=== PATIENT | male | born 1935 | race Caucasian/White ===

== ENCOUNTER 2018-11-13 09:38 | Outpatient (CLI) | payer MEDICARE ==
--- NOTE | 2018-11-13 11:31 | ULT ---
FBilateral upper extremity vein mapping, with grayscale and Doppler color flow Bilateral upper extremity Doppler venous ultrasound with grayscale and color flow imaging CLINICAL HISTORY: Dialysis access, soft tissue edema Findings for the vein mapping are in millimeters: RIGHT UPPER EXTREMITY: Brachial artery 4.8 Radial artery 2.7 Ulnar artery 1.8 Cephalic size 1.9, 2.4, 3.3, 3.9, 2.7, 1.9, 1.6 Basilic size 5.0, 2.7 3.0 2.4, 1.9 1.2, 1.6 LEFT UPPER EXTREMITY: Brachial 5.7 Radial artery 2.2 Ulnar artery 2.6 Cephalic size 1.0, 0.6, 0.6 1.0, 1.7 1.4, 1.2 Basilic size 3.7 1.7, 2.4 1.0, 0.8 0.7, 0.9 Evaluation of deep vein system of each upper extremity reveals appropriate patency and flow, without evidence of DVT. There is scattered soft tissue edema. Correlate clinically. IMPRESSION: 1. Bilateral extremity vein mapping as above. 2. No evidence of DVT of the bilateral upper extremities. 3. Soft tissue edema, nonspecific. Correlate clinically. Transcribed Date/Time: 11/13/2018 12:00 PM
--- NOTE | 2018-11-13 11:32 | ULT ---
FBilateral upper extremity vein mapping, with grayscale and Doppler color flow Bilateral upper extremity Doppler venous ultrasound with grayscale and color flow imaging CLINICAL HISTORY: Dialysis access, soft tissue edema Findings for the vein mapping are in millimeters: RIGHT UPPER EXTREMITY: Brachial artery 4.8 Radial artery 2.7 Ulnar artery 1.8 Cephalic size 1.9, 2.4, 3.3, 3.9, 2.7, 1.9, 1.6 Basilic size 5.0, 2.7 3.0 2.4, 1.9 1.2, 1.6 LEFT UPPER EXTREMITY: Brachial 5.7 Radial artery 2.2 Ulnar artery 2.6 Cephalic size 1.0, 0.6, 0.6 1.0, 1.7 1.4, 1.2 Basilic size 3.7 1.7, 2.4 1.0, 0.8 0.7, 0.9 Evaluation of deep vein system of each upper extremity reveals appropriate patency and flow, without evidence of DVT. There is scattered soft tissue edema. Correlate clinically. IMPRESSION: 1. Bilateral extremity vein mapping as above. 2. No evidence of DVT of the bilateral upper extremities. 3. Soft tissue edema, nonspecific. Correlate clinically. Transcribed Date/Time: 11/13/2018 12:05 PM
== END 2018-11-13 09:39 | disposition home or self-care (01) ==
LOC: ULT 09:38
PROVIDERS: ATTEND Internal Medicine Nephrology
DX: Z01.818 Encounter for other preprocedural examination (principal); I12.0 Hypertensive chronic kidney disease with stage 5 chronic kidney disease or end stage renal disease; N18.5 Chronic kidney disease, stage 5; R60.9 Edema, unspecified; M79.89 Other specified soft tissue disorders
CPT/HCPCS: 93970; G0365

== ENCOUNTER 2018-11-27 10:03 | Day surgery (SDC) | payer MEDICARE ==
[2018-11-26 11:14] VITALS: BMI 29.8
--- NOTE | 2018-11-26 12:58 | HP ---
AGE: [age] years old. HISTORY OF PRESENT ILLNESS: Tae Sena is an 83-year-old male patient dialyzes Monday, Monday, and Monday at [facility]. He is retired employee for the [employer]. 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 He arrives in my office in a wheelchair. He is with his daughter. His irish moss bleacher is Dr. Marroquin. He dialyzes Monday, Monday, and Monday at 12:40 p.m. [facility]. The patient is left handed. Ultrasound vein mapping at [facility] reveals adequate veins in right arm. Plan is for right arm primary fistula. He has had a previous hemodialysis catheter placed in [facility] two months ago. PAST SURGICAL HISTORY: Hemodialysis catheter in [facility]. He has had an appendectomy and a partial nephrectomy. MEDICATIONS: 1. Tylenol. 2. Aspirin. 3. Synthroid 50 mcg a day. 4. . 5. Lyrica 75 mg a day. 6. Furosemide 40 mg a day. 7. Vitamin D. 8. Amlodipine 5/10 daily. SOCIAL HISTORY: Tobacco cessation, alcohol cessation 10 to 15 years ago. ALLERGIES: NONE. PAST MEDICAL HISTORY: Hypertension, type 2 diabetes mellitus, hyperlipidemia, chronic kidney disease, end-stage renal disease, gout, history of nephrolithiasis, partial left nephrectomy for noncancerous disease, and appendectomy in the past. PHYSICAL EXAMINATION: VITAL SIGNS: Weight 229 pounds, 70 inches. Blood pressure 141/65, pulse 68, and temperature 97.3 degrees. HEAD, EARS, EYES, NOSE, AND THROAT: Unremarkable. LUNGS: Clear to auscultation. CARDIAC: Regular rate and rhythm without murmur or gallop. ABDOMEN: Soft and nontender. No hernias. Obese. VASCULAR: Palpable radial pulses, hemodialysis catheter right IJ. ASSESSMENT: End-stage renal disease, on maintenance dialysis Monday, Monday, and Monday at [facility], followed by Dr. Marroquin. PLAN: Placement of a right arm fistula, regional TIVA anesthesia, outpatient IV access, blood draws through his hemodialysis catheter. Job ID: [id number]
[2018-11-27 11:40] LABS: Anion Gap 13 mmol/L (10-20); BUN (Urea Nitrogen) 30 mg/dL (8.4-25.7); Calc. Creatinine Clearance 16 mL/min (70-130); Calcium 8.5 mg/dL (7.8-10.44); Carbon Dioxide 30 mmol/L (23-31); Chloride 101 mmol/L (98-107); Estimated GFR-MDRD 12; Glucose 148 mg/dL (83-110); Sodium 140 mmol/L (136-145)
[2018-11-27] MEDS ORDERED: Fentanyl 100 MCG/2 ML VIAL ONE ×2 (11:47→14:54)
[2018-11-27 12:12] LABS: #Basophils 0.1 thou/uL (0.0-0.2); #Eosinphils 0.5 thou/uL (0.0-0.7); #Lymphocytes 2.4 thou/uL (1.20-3.40); #Monocytes 1.3 thou/uL (0.11-0.59); #Neutrophils 7.7 thou/uL (1.40-6.50); %Basophils 0.6 % (0.0-1.0); %Eosinophils 4.6 % (0.0-10.0); %Lymphocytes 19.8 % (21.0-51.0); %Monocytes 10.5 % (0.0-10.0); %Neutrophils 64.4 % (42.0-75.0); Hemoglobin 13.5 g/dL (14.0-18.0); Large Platelets SLIGHT; MDiff Complete? YES; Mean Corpuscular HGB CONC 33.1 g/dL (32.0-36.0); Mean Corpuscular Hemoglobin 33.8 pg (27.0-31.0); Mean Platelet Volume 11.5 fL (7.4-10.4); Platelet Count 116 thou/uL (130-400); Platelet Morphology Comment Appears Decreased; Polychromasia SLIGHT = 2-3 cells (100X) (0-2/hpf); White Blood Cell (WBC) Count 11.9 thou/uL (4.8-10.8)
[2018-11-27] MEDS ORDERED: Bupivacaine HCl 0.5%/Epinephrine 1:200,000/PF 30 ml Vial ONE ×2 (13:31→14:52)
[2018-11-27] MEDS ORDERED: PHENYLEPHRINE-NS 100 MCG/ML 10 ML SYRINGE ONE (13:42)
[2018-11-27] MEDS ORDERED: Lidocaine 1% PF 5 ML VIAL ONE (13:42)
[2018-11-27] MEDS ORDERED: PROPOFOL 200 MG/20 ML VIAL ONE (13:42)
[2018-11-27] MEDS ORDERED: Heparin 10,000 UNITS/ 10 ML VIAL ONE ×2 (13:42→17:37)
[2018-11-27] MEDS ORDERED: Midazolam HCl 2 mg/2 ml Vial ONE (14:54)
[2018-11-27] MEDS ORDERED: Heparin 5,000 UNITS/ML VIAL ONE (14:56)
[2018-11-27] MEDS ORDERED: Iothalamate Meglumine 60% 50 ML VIAL FS ONE (14:56)
[2018-11-27] MEDS ORDERED: Lidocaine 2% PF 5 ML VIAL ONE (14:56)
[2018-11-27] MEDS ORDERED: Protamine Sulfate 50 MG/5 ML VIAL ONE (14:56)
--- NOTE | 2018-11-27 21:46 | OP ---
DATE OF PROCEDURE: 11/27/2018 PREOPERATIVE DIAGNOSIS: End-stage renal disease. POSTOPERATIVE DIAGNOSIS: End-stage renal disease. PROCEDURE PERFORMED: Right arm Taylor fistula, cephalic vein calibrated to a 3.5-mm coronary dilator. Good Doppler signal, cephalic vein outflow, forearm. ANESTHESIA: Regional, TIVA, LMA. DESCRIPTION OF PROCEDURE: The patient was taken to the operating room where under intravenous sedation and regional anesthesia due to the long prolonged period of time after the block and delay in surgery, LMA was used. The right upper extremity was prepared with ChloraPrep and draped in routine fashion. Incision was made between cephalic vein and radial artery longitudinally at the wrist, carried down to the skin and subcutaneous tissue. Radial artery and cephalic vein were dissected free. The patient was given 6000 units of heparin intravenously. Radial artery was of good quality. It was clamped proximally and distally. A longitudinal arteriotomy was made sharply, elongated with Asher scissors. After the cephalic vein was ligated on the hand side, it was spatulated and interrogated with coronary dilators passing coronary dilators from a 2.5 to a 3.5-mm coronary dilator throughout the length in the cephalic vein, forearm. It was flushed with heparinized saline solution. It was spatulated and end vein to side radial artery anastomosis was made with continuous suture of 6-0 Prolene for a 2.5-cm anastomosis. Good Doppler signal noted. Branches were divided between 4-0 silk ties and clips in the outflow. Good Doppler signal noted. The patient tolerated the procedure well. Subcutaneous tissue was approximated with 3-0 Monocryl, skin with subdermal 4-0 Monocryl and the patient was given 25 mg protamine by Anesthesia intravenously. Job ID: [id number]
== END 2018-11-27 18:05 | disposition home or self-care (01) ==
LOC: SDC 10:03
PROVIDERS: ATTEND Specialist
PROC: 031B0ZF Bypass Right Radial Artery to Lower Arm Vein, Open Approach (ICD-10-PCS; principal; 2018-11-27)
DX: I12.0 Hypertensive chronic kidney disease with stage 5 chronic kidney disease or end stage renal disease (principal); E11.22 Type 2 diabetes mellitus with diabetic chronic kidney disease; N18.6 End stage renal disease; M10.9 Gout, unspecified; E78.5 Hyperlipidemia, unspecified; Z99.2 Dependence on renal dialysis; Z79.82 Long term (current) use of aspirin; Z79.899 Other long term (current) drug therapy; Z90.5 Acquired absence of kidney
CPT/HCPCS: 80048; 85025; 93005; 93010; J0670; J0690; J1644; J2001; J2250; J2704; J2720; J3010; Q9961

== ENCOUNTER 2019-01-24 09:43 | Outpatient (CLI) | payer OTHER ==
--- NOTE | 2019-01-24 11:28 | ULT ---
BILATERAL RENAL ULTRASOUND: Date: 01/24/19 HISTORY: Chronic kidney disease. FINDINGS: Right kidney measures 13.8 cm length. Left kidney measures 10.3 cm. There are multiple bilateral renal cystic lesions. The largest in the inferior pole of the left kidne y measures 4-5 cm. The largest in the inferior right kidney measures 3-4 cm. There is increased corti edita echogenicity with cortical thinning consistent with history of chronic kidney disease. No definit e hydronephrosis. Bladder is mildly distended. Pre-void bladder volume recorded at 137 mL. IMPRESSION: Cortical thinning and increased cortical echogenicity bilaterally consistent with chronic kidney dise ase. Bilateral renal cystic lesions. POS: ATIF
== END 2019-01-24 09:44 | disposition home or self-care (01) ==
LOC: ULT 09:43
PROVIDERS: ATTEND Internal Medicine Hematology & Oncology
DX: N18.4 Chronic kidney disease, stage 4 (severe) (principal); N28.1 Cyst of kidney, acquired; N28.89 Other specified disorders of kidney and ureter
CPT/HCPCS: 76770

== ENCOUNTER 2019-02-15 07:08 | Inpatient (IN) | payer MEDICARE ==
[2019-02-15] MEDS ORDERED: Furosemide 40 MG/4 ML VIAL ONE (07:48)
--- NOTE | 2019-02-15 08:01 | RAD ---
EXAM: Chest one view: HISTORY: Dyspnea COMPARISON: None FINDINGS: Right-sided venous access catheter. Left-sided pleural thickening and pleural calcification. Right upper lobe bullous changes. Increased linear interstitial markings in the bases bilaterally, possibilities include that of chroni c change versus subsegmental atelectasis versus mild bibasilar pneumonitis. Heart size: Within normal limits. Lungs: Clear of acute process. No significant edema or pleural effusion or pneumothorax. IMPRESSION: Bibasilar linear and interstitial increased markings, nonspecific. Bullous emphysema changes in the right upper lobe. Left-sided pleural calcification. Atherosclerosis of the aorta.
[2019-02-15] MEDS ORDERED: methylPREDNISolone Sod Succ/PF 125 MG/2 ML VIAL ONE (08:15)
[2019-02-15 08:20] LABS: ALT (SGPT) 29 U/L (8-55); AST (SGOT) 35 U/L (5-34); Albumin 3.6 g/dL (3.4-4.8); Alkaline Phosphatase 72 U/L (40-150); Anion Gap 25 mmol/L (10-20); BUN (Urea Nitrogen) 71 mg/dL (8.4-25.7); Bilirubin, Total 0.5 mg/dL (0.2-1.2); Calc. Creatinine Clearance 0 mL/min (70-130); Calcium 8.8 mg/dL (7.8-10.44); Carbon Dioxide 21 mmol/L (23-31); Chloride 100 mmol/L (98-107); Estimated GFR-MDRD 6; Globulin 3.1 g/dL (2.4-3.5); Glucose 243 mg/dL (83-110); Phosphorus 5.8 mg/dL (2.3-4.7); Potassium 4.9 mmol/L (3.5-5.1); Protein, Total 6.7 g/dL (5.8-8.1); Sodium 141 mmol/L (136-145)
[2019-02-15 08:22] LABS: Band 17 % (5-11); Hemoglobin 14.1 g/dL (14.0-18.0); Lymphocytes 21 % (21-51); MDiff Complete? YES; Macrocytosis SLIGHT = 6-15 cells (100X) (0-5/hpf); Mean Corpuscular HGB CONC 32.7 g/dL (32.0-36.0); Mean Corpuscular Hemoglobin 34.3 pg (27.0-31.0); Mean Platelet Volume 10.4 fL (7.4-10.4); Monocytes 14 % (0-10); Neutrophil 48 % (42-75); Platelet Count 151 thou/uL (130-400); RBC Distribution Width 15.1 % (11.5-14.5); White Blood Cell (WBC) Count 13.6 thou/uL (4.8-10.8)
[2019-02-15] MEDS ORDERED: cefTRIAXone\\ROCEPHIN 2 GM VIAL ONE (08:36)
[2019-02-15] MEDS ORDERED: Azithromycin 500 MG VIAL ONE (08:36)
[2019-02-15 08:41] LABS: CKMB 2.7 ng/mL (0-6.6)
[2019-02-15 10:02] LABS: HBSAB Concentration 1.76 mIU/mL; HBSAg Index 0.26 S/CO (0-0.99); Hep B Surf AB Non-Reactive (NonReactive); Hep B Surf Ag Non-Reactive S/CO (NonReactive)
[2019-02-15 11:22] LABS: Troponin I 0.108 ng/mL (< 0.028)
[2019-02-15] MEDS ORDERED: cefTRIAXone\\ROCEPHIN 500 MG in Sodium Chloride 0.9% 0 ML IVPB SCH (12:01)
[2019-02-15] MEDS ORDERED: Dextrose 50% Abboject 50 ML SYRINGE SLOW IVP PRN (12:01)
[2019-02-15] MEDS ORDERED: Dextrose 5% in Water 1,000 ML IV PRN (12:01)
[2019-02-15] MEDS ORDERED: Acetaminophen 325 MG TAB PO PRN (12:01)
[2019-02-15] MEDS ORDERED: hydrALAZINE 20 MG/ML VIAL SLOW IVP PRN (12:01)
[2019-02-15] MEDS ORDERED: HumaLOG 300 UNITS/3 ML VIAL SC PRN (12:01)
--- NOTE | 2019-02-15 12:04 | HP ---
PRIMARY CARE PHYSICIAN: Dr. Jolynn Pierce. He also does get some of his primary care [place]. CHIEF COMPLAINT: Shortness of breath. HISTORY OF PRESENT ILLNESS: Mr. Sena is a very pleasant 83-year-old gentleman, who has a history of hypertension, diabetes mellitus, as well as end-stage renal disease, on hemodialysis. He says that Monday night he started having a problem with cough, Monday, he went to dialysis and after dialysis, he was extremely tired and slept most of the day. Following that on , he started having a cough again. He says it was productive of a brownish looking phlegm. There is no blood. He denies having any fever or chills. No nausea, no vomiting, but he says he has not had much of an appetite. He also noted some diarrhea, just one episode of a very large loose stool. No blood there, but that has since resolved. He came to the ER for evaluation and had a chest x-ray, which showed some bibasilar infiltrates, which was a little bit more dense on the left and also an elevated white blood cell count and he is being admitted for community-acquired pneumonia. REVIEW OF SYSTEMS: CONSTITUTIONAL: There has been no fevers or chills. No night sweats. No weight loss, but he does admit to poor appetite. HEENT: No headaches. No dizziness. No visual changes. No sore throat, rhinorrhea, or neck pain. No adenopathy. PULMONARY: As in the history of present illness. CARDIOVASCULAR: He denies any chest pain. No shortness of breath. No PND. No orthopnea. GASTROINTESTINAL: He has had one episode of diarrhea, but this has resolved. GENITOURINARY: No urinary frequency, no hematuria, no hesitancy. NEUROLOGIC: No focal weakness or numbness. No seizures. PSYCHIATRIC: No symptoms of anxiety or depression. SKIN AND INTEGUMENT: No skin changes. No rash. MUSCULOSKELETAL: No muscle pains, weakness, or joint pains. PAST MEDICAL HISTORY: Significant for hypertension; diabetes mellitus type 2; hyperlipidemia; end-stage renal disease, on hemodialysis; nephrolithiasis and a partial left nephrectomy. PAST SURGICAL HISTORY: He has had an appendectomy and partial left nephrectomy. ALLERGIES: NO KNOWN DRUG ALLERGIES. SOCIAL HISTORY: He is a former smoker. He said he quit about 20 years ago. Prior to that he smoked about two packs a day for at least 30 years. He says he used to drink, but he has basically stopped when he stopped smoking. He is . He has three children, two of which are living. His son, Greg Sena, is his surrogate decision maker and he would like to be a full code. FAMILY HISTORY: No history of any heritable diseases. CURRENT MEDICATIONS: Include; 1. Tylenol 500 mg twice a day. 2. Aspirin 81 mg daily. 3. Atacand 8 mg daily. 4. Caduet 5/10 mg once a day. 5. Glipizide 5 mg daily. 6. Lasix 40 mg twice a day. 7. Levothyroxine 50 mcg p.o. daily. 8. Lyrica 75 mg daily. 9. Metoprolol succinate extended release 25 mg once a day. 10. Renvela 800 mg twice a day. 11. Vitamin D3 1000 units once daily. PHYSICAL EXAMINATION: GENERAL: He is alert and oriented. He appears to be in no acute distress. He is well developed and well nourished. His son is at the bedside. VITAL SIGNS: Blood pressure was 118/72, heart rate 112, respiratory rate of 18, and temperature is 99.9. HEENT: His pupils are equal, round, and reactive to light and accommodation. Extraocular muscles are intact. Sclerae anicteric. Throat, there is no erythema. No exudates. On his right tympanic membrane, it is obscured by wax and there is a plastic looking foreign body in the external canal embedded in the wax. It is round and looks like it could possibly be a piece of a hearing aid. NECK: No adenopathy. No bruits. LUNGS: He has bilateral rales in both lower lung dickerson. No wheezing, no rhonchi, and he does have some decreased breath sounds at the left base. CARDIOVASCULAR: He has a normal S1 and S2. There is no S3 or S4. No murmurs, clicks or rubs. ABDOMEN: Obese. It is soft. It is nontender and nondistended. Positive for bowel sounds. No rebound. No guarding. EXTREMITIES: There is actually no edema. No pedal edema and his skin appears a bit dry and scaling. No calf tenderness. No joint effusions. NEUROLOGIC: His cranial nerves are intact and muscle strength is also intact. SKIN AND INTEGUMENT: He does have some mild discoloration of the lower extremities. No significant skin lesions. However, the skin is a bit dry and scaly on the lower extremities. LABORATORY DATA: Lab results, the white blood cell count is 13.6, hemoglobin is 14.4, hematocrit is 43, MCV is 105, and platelet count is 151. Sodium is 141, potassium is 4.9, chloride is 100, CO2 is 21, BUN of 71, and creatinine is 8.5, and glucose is 243. Lactic acid is 3.3. Troponin is 0.126. ASSESSMENT: This is a pleasant 83-year-old gentleman, who presents to the emergency room complaining of cough and shortness of breath. He is found to have a left lower lobe infiltrate. He has not recently been hospitalized. Therefore, this could be considered a community-acquired pneumonia. However, he does attend dialysis. Therefore, if the initial antibiotic choice does not improve his symptoms, then we will consider treating for healthcare-associated pneumonia. 1. For pneumonia, he will be admitted to the hospital and will continue Rocephin and azithromycin. Blood cultures have been obtained from the ER and we will place him on DuoNeb as needed as well as supplemental oxygen. 2. End-stage renal disease, on hemodialysis. We will consult his cost and risk analysis manager for maintenance hemodialysis and renal dose medications. 3. Diabetes mellitus. Restart his home medications as well as a sliding scale insulin. 4. Hypertension. Continue his usual home medications as well as p.r.n. medications. 5. He will be placed on DVT and GI prophylaxis. Job ID: [id number]
[2019-02-15 13:02] LABS: Lactic Acid 2.2 mmol/L (0.5-2.2)
[2019-02-15 13:31] LABS: Troponin I 0.104 ng/mL (< 0.028)
[2019-02-15] MEDS ORDERED: Prevnar 13-Val Conj/PF 0.5 ML SYRINGE IM ONE (15:00)
--- NOTE | 2019-02-15 17:59 | CON ---
DATE OF CONSULTATION: REASON FOR CONSULTATION: End-stage kidney disease, for maintenance hemodialysis. HISTORY OF PRESENT ILLNESS: This is an 83-year-old gentleman, presented to the hospital with increasing dyspnea for the last 2 to 3 days and weakness. The patient was not hypoxic, but was started on oxygen. The patient was last dialyzed on Monday without any issues. PAST MEDICAL HISTORY: Significant for end-stage kidney disease, hypertension, anemia, history of AV fistula, history of tunneled dialysis catheter, history of nephrolithiasis, partial nephrectomy, and appendectomy. SOCIAL HISTORY: No alcohol or drug use. FAMILY HISTORY: Negative for ESRD. ALLERGIES: REVIEWED. MEDICATIONS: Home medication list, reviewed. Hospital medication list, reviewed. REVIEW OF SYSTEMS: A 15-point review of systems was performed and was negative except for positives noted above. GENERAL: HEAD: NECK: No swelling or lumps. NOSE: No epistaxis or discharge. EYES: No diplopia or pain. RESPIRATORY: CARDIOVASCULAR: GASTROINTESTINAL: /NET LEAD DEVELOPER: MUSCULOSKELETAL: No joint pain. NEUROPSYCHIATIC SYSTEMS: No suicidal ideation. No ideation. SKIN: Denies any rash or ulcer. CONSTITUTIONAL: No fever or chills. PHYSICAL EXAMINATION: GENERAL: The patient is awake and alert. VITAL SIGNS: Afebrile, pulse 107, breathing 16, blood pressure 115/58. GENERAL APPEARANCE AND MENTAL STATUS: Fair. HEAD/NECK: Normocephalic. Atraumatic. EYES: EOMI. No deformity. EARS: Clear. No ulcers. NOSE: Intact. No lesions. MOUTH: Clear. No discharge. THROAT: Clear. No exudate. LUNGS: Clear. No crackles. CARDIAC: S1, S2. No rub. ABDOMEN: Benign. Bowel sounds positive. GENITALIA/RECTUM: Babb absent. BACK/EXTREMITIES: Edema 0+. NEUROLOGICAL: Alert and motor intact. SKIN: LYMPHATICS: LABORATORY DATA: Reviewed. ASSESSMENT AND PLAN: 1. Stage 6 chronic kidney disease. Plan dialysis. 2. Pulmonary edema. Plan dialysis. 3. Hypertension, stable. 4. Medication based on GFR, appropriate. Job ID: [id number]
[2019-02-15] MEDS: Heparin 5,000 UNITS/ML VIAL SC SCH (20:51)
[2019-02-16] MEDS: HumaLOG 300 UNITS/3 ML VIAL SC PRN (06:19)
[2019-02-16 07:00] LABS: Anion Gap 22 mmol/L (10-20); BUN (Urea Nitrogen) 44 mg/dL (8.4-25.7); Calc. Creatinine Clearance 15 mL/min (70-130); Calcium 9.9 mg/dL (7.8-10.44); Carbon Dioxide 26 mmol/L (23-31); Chloride 96 mmol/L (98-107); Estimated GFR-MDRD 11; Glucose 223 mg/dL (83-110); Potassium 4.5 mmol/L (3.5-5.1); Sodium 139 mmol/L (136-145)
[2019-02-16] MEDS ORDERED: Artificial Tears 18 DROP/0.9 ML EA EYE PRN (07:36)
[2019-02-16] MEDS ORDERED: Sodium Chloride 0.65% Nasal 44 ML BOT EA NARE PRN (07:36)
[2019-02-16] MEDS ORDERED: HYDROcodone/Acetaminophen 5/325 mg Tablet PO PRN (07:36)
[2019-02-16] MEDS ORDERED: Bisacodyl 10 MG SUPP PR PRN (07:36)
[2019-02-16] MEDS ORDERED: Metoclopramide HCl 10 MG/2 ML VIAL IVP PRN (07:36)
[2019-02-16] MEDS ORDERED: Loperamide HCl 2 MG CAP PO PRN (07:36)
[2019-02-16] MEDS ORDERED: Cepastat Lozenges 1 LOZ PO PRN (07:36)
[2019-02-16] MEDS ORDERED: Diabetic Tussin 200 MG/10 ML UDCUP PO PRN (07:36)
[2019-02-16] MEDS ORDERED: Loratadine 10 MG TAB PO PRN (07:36)
[2019-02-16] MEDS ORDERED: Temazepam 15 MG CAP PO PRN (07:36)
[2019-02-16 07:44] LABS: Band 15 % (5-11); Hemoglobin 14.7 g/dL (14.0-18.0); Lymphocytes 12 % (21-51); MDiff Complete? YES; Mean Corpuscular HGB CONC 31.9 g/dL (32.0-36.0); Mean Corpuscular Hemoglobin 33.9 pg (27.0-31.0); Mean Platelet Volume 10.5 fL (7.4-10.4); Metamyelocyte 1 % (0-0); Monocytes 8 % (0-10); Neutrophil 64 % (42-75); Nucleated RBC 1 % (0); Platelet Count 195 thou/uL (130-400); RBC Distribution Width 15.2 % (11.5-14.5); Red Blood Cell (RBC) Count 4.34 mill/uL (4.70-6.10); White Blood Cell (WBC) Count 15.2 thou/uL (4.8-10.8)
[2019-02-16] MEDS ORDERED: AMLODIPINE PO SCH (09:00)
[2019-02-16] MEDS ORDERED: ATORVASTATIN PO SCH (09:00)
[2019-02-16] MEDS ORDERED: CHOLECALCIFEROL PO SCH (09:00)
[2019-02-16] MEDS ORDERED: Levothyroxine Sodium 50 MCG TAB PO SCH (09:00)
[2019-02-16] MEDS ORDERED: Senokot S 8.6-50 MG TAB PO PRN (09:00)
[2019-02-16] MEDS: cefTRIAXone\\ROCEPHIN 1 GM in Sodium Chloride 0.9% 100 ML IVPB SCH (09:01)
[2019-02-16] MEDS: Amlodipine 5 MG TAB PO SCH (09:02)
[2019-02-16] MEDS: Aspirin 81 mg Enteric Coated Tablet PO SCH (09:03)
[2019-02-16] MEDS: Atorvastatin Calcium 10 MG TAB PO SCH (09:03)
[2019-02-16] MEDS: Folic Acid 1 MG TAB PO SCH (09:04)
[2019-02-16] MEDS: guaiFENesin ER 600 MG TAB PO SCH ×2 (09:04→20:21)
[2019-02-16] MEDS: Famotidine 20 MG TAB PO SCH (09:04)
[2019-02-16] MEDS: Cyanocobalamin (Vitamin B-12) 1,000 MCG TAB PO SCH (09:04)
[2019-02-16] MEDS: Heparin 5,000 UNITS/ML VIAL SC SCH ×2 (09:04→20:21)
[2019-02-16] MEDS: Levothyroxine Sodium 50 MCG TAB PO SCH (09:05)
[2019-02-16] MEDS: Pregabalin 75 MG CAP PO SCH ×2 (09:05→20:25)
--- NOTE | 2019-02-16 10:17 | PDOC.PN ---
- Subjective Encounter Start Date: 02/16/19 Encounter Start Time: 07:50 -: old records requested/rev Patient seen and examined. No new complaints. No overnight events - Objective Resuscitation Status - Order Detail: 02/15/19 10:49 Resuscitation Status Routine Resuscitation Status: FULL: Full Resuscitation MAR Reviewed: Yes Vital Signs & Weight: Vital Signs (12 hours) Temp Pulse Resp BP Pulse Ox 02/16/19 07:36 97.6 F 101 H 18 130/66 94 L 02/16/19 04:00 98.0 F 100 20 128/68 92 L 02/16/19 01:33 97.9 F 93 20 135/62 94 L Weight Weight 218 lb 3.2 oz Result Diagrams: 02/16/19 06:26 02/16/19 06:26 Additional Labs: Accuchecks 02/16/19 02/15/19 02/15/19 05:50 20:40 13:03 POC Glucose 210 H 229 H 264 H Radiology Reviewed by me: Yes EKG Reviewed by me: Yes Phys Exam - Physical Examination Constitutional: NAD HEENT: PERRLA, moist MMs, sclera anicteric Neck: no JVD, supple Respiratory: no wheezing, no rales, no rhonchi Cardiovascular: RRR, no significant murmur, no rub Gastrointestinal: soft, non-tender, no distention, positive bowel sounds Musculoskeletal: no edema, pulses present Neurological: non-focal, normal sensation, moves all 4 limbs Lymphatic: no nodes Psychiatric: normal affect, A&O x 3 Skin: no rash, normal turgor Dx/Plan (1) Community acquired bacterial pneumonia Code(s): J15.9 - UNSPECIFIED BACTERIAL PNEUMONIA Status: Acute (2) Demand ischemia Code(s): I24.8 - OTHER FORMS OF ACUTE ISCHEMIC HEART DISEASE Status: Acute (3) Lactic acidosis Code(s): E87.2 - ACIDOSIS Status: Acute (4) Diabetes type 2, controlled Code(s): E11.9 - TYPE 2 DIABETES MELLITUS WITHOUT COMPLICATIONS Status: Chronic (5) ESRD on hemodialysis Code(s): N18.6 - END STAGE RENAL DISEASE; Z99.2 - DEPENDENCE ON RENAL DIALYSIS Status: Chronic (6) Hypertension Code(s): I10 - ESSENTIAL (PRIMARY) HYPERTENSION Status: Chronic (7) Hypothyroidism Code(s): E03.9 - HYPOTHYROIDISM, UNSPECIFIED Status: Chronic (8) Macrocytosis Code(s): D75.89 - OTHER SPECIFIED DISEASES OF BLOOD AND BLOOD-FORMING ORGANS Status: Chronic (9) Obesity (BMI 30.0-34.9) Code(s): E66.9 - OBESITY, UNSPECIFIED Status: Chronic (10) Secondary hyperparathyroidism (of renal origin) Code(s): N25.81 - SECONDARY HYPERPARATHYROIDISM OF RENAL ORIGIN Status: Chronic - Plan cont current plan of care, continue antibiotics * continue rocephin and levaquin * add folic acid, vitamin B12 * follow culture result * medication reviewed as below * symptomatic treatment * HD as per nephrology. * add mucinex, duoneb Review of Systems - Review of Systems ENT: negative: Ear Pain, Ear Discharge, Nose Pain, Nose Discharge, Nose Congestion, Mouth Pain, Mouth Swelling, Throat Pain, Throat Swelling, Other Respiratory: Cough, SOB with Excertion. negative: Dry, Shortness of Breath, Hemoptysis, Pleuritic Pain, Sputum, Wheezing Cardiovascular: negative: chest pain, palpitations, orthopnea, paroxysmal nocturnal dyspnea, edema, light headedness, other Gastrointestinal: negative: Nausea, Vomiting, Abdominal Pain, Diarrhea, Constipation, Melena, Hematochezia, Other Genitourinary: negative: Dysuria, Frequency, Incontinence, Hematuria, Retention , Other Musculoskeletal: negative: Neck Pain, Shoulder Pain, Arm Pain, Back Pain, Hand Pain, Leg Pain, Foot Pain, Other Skin: negative: Rash, Lesions, Santos, Bruising, Other - Medications/Allergies Allergies/Adverse Reactions: Allergies Allergy/AdvReac Type Severity Reaction Status Date / Time No Known Allergies Allergy Verified 02/15/19 19:54 Medications: Current Medications Acetaminophen (Tylenol) 650 mg PO Q4H PRN PRN Reason: Headache/Fever/Mild Pain (1-3) Hydrocodone Bitart/Acetaminophen ([place] 5/325) 1 tab PO Q4H PRN PRN Reason: Moderate Pain (4-6) Albuterol/Ipratropium (Duoneb) 3 ml NEB Q1QY-SC [facility] Amlodipine Besylate (Norvasc) 5 mg PO DAILY [facility] Last Admin: 02/16/19 09:02 Dose: 5 mg Artificial Tears (Tears Naturale) 2 drop EA EYE PRN PRN PRN Reason: Dry Eyes Aspirin (Ecotrin) 81 mg PO DAILY [facility] Last Admin: 02/16/19 09:03 Dose: 81 mg Atorvastatin Calcium (Lipitor) 10 mg PO DAILY [facility] Last Admin: 02/16/19 09:03 Dose: 10 mg Bisacodyl (Dulcolax) 10 mg VT DAILYPRN PRN PRN Reason: Constipation Candesartan Cilexetil (Atacand) 16 mg PO QAM [facility] Cholecalciferol (Vitamin D3) 3,000 units PO DAILY [facility] Last Admin: 02/16/19 09:03 Dose: 3,000 units Cyanocobalamin (Vitamin B-12) 1,000 mcg PO DAILY [facility] Last Admin: 02/16/19 09:04 Dose: 1,000 mcg Dextrose/Water (Dextrose 50%) 25 gm SLOW IVP PRN PRN PRN Reason: Hypoglycemia Famotidine (Pepcid) 20 mg PO DAILY [facility] Last Admin: 02/16/19 09:04 Dose: 20 mg Folic Acid (Folvite) 1 mg PO DAILY [facility] Last Admin: 02/16/19 09:04 Dose: 1 mg Glucagon (Glucagon) 1 mg IM PRN PRN PRN Reason: Hypoglycemia Guaifenesin (Mucinex) 600 mg PO Q12HR [facility] Last Admin: 02/16/19 09:04 Dose: 600 mg Guaifenesin (Robitussin Sf) 200 mg PO Q4H PRN PRN Reason: Cough Heparin Sodium (Porcine) (Heparin) 5,000 units SC BID [facility] Last Admin: 02/16/19 09:04 Dose: 5,000 units Hydralazine HCl (Apresoline) 10 mg SLOW IVP Q4H PRN PRN Reason: SBP > 180 and HR < 70 Ceftriaxone Sodium 1 gm/ (Sodium Chloride) 100 mls @ 200 mls/hr IVPB Q24HR [facility] Last Admin: 02/16/19 09:01 Dose: 100 mls Dextrose/Water (D5w) 1,000 mls @ 0 mls/hr IV .Q0M PRN PRN Reason: Hypoglycemia Insulin Human Lispro (Humalog) 0 units SC .MODERATE SLIDING SC PRN PRN Reason: Moderate Correctional Scale Last Admin: 02/16/19 06:19 Dose: 4 unit Insulin Human Lispro (Humalog) 0 units SC .BEDTIME SLIDING SC PRN PRN Reason: Bedtime Correctional Scale Levothyroxine Sodium (Synthroid) 50 mcg PO QAM [facility] Last Admin: 02/16/19 09:05 Dose: 50 mcg Loperamide HCl (Imodium) 2 mg PO PRN PRN PRN Reason: Diarrhea/Loose Stools Loratadine (Claritin) 10 mg PO DAILYPRN PRN PRN Reason: Sinus Symptoms Metoclopramide HCl (Reglan) 5 mg IVP Q4H PRN PRN Reason: Nausea Metoprolol Succinate (Toprol Xl) 25 mg PO [facility] Last Admin: 02/15/19 20:51 Dose: 25 mg Pregabalin (Lyrica) 75 mg PO BID [facility] Last Admin: 02/16/19 09:05 Dose: 75 mg Senna/Docusate Sodium (Senokot S) 2 tab PO BID PRN PRN Reason: Constipation Sodium Chloride (Flush - Normal Saline) 10 ml IVF Q12HR [facility] Last Admin: 02/16/19 09:07 Dose: 10 ml Sodium Chloride (Flush - Normal Saline) 10 ml IVF PRN PRN PRN Reason: Saline Flush Sodium Chloride ([place] Nasal [place] 0.65%) 0 ml EA NARE QIDPRN PRN PRN Reason: Nasal Congestion Temazepam (Restoril) 15 mg PO HSPRN PRN PRN Reason: Insomnia Throat Lozenges (Cepastat Lozenges) 1 nelda PO Q2H PRN PRN Reason: Sore Throat
--- NOTE | 2019-02-16 12:33 | CT ---
CT THORAX NONCONTRAST: DATE: 02/16/2019 HISTORY: 83-year-old male with hypoxemia and dyspnea COMPARISON: none FINDINGS: There are infiltrates at the posterior basilar segments of the bilateral lower lobes, and a similar m ild such changes at the lingula, which could be acute or chronic, but are slightly favored to be chronic. Babb and blebs at bilateral posterior costophrenic angles, abutting the infiltrates, left g reater than right. No consolidation in the bilateral upper lobes. Centrilobular emphysematous changes in the bilateral upper lobes. No bullae at lung apices. Trachea and major bronchi are patent and clear. No cardiomegaly. Atherosclerotic calcification without aneurysm of thoracic aorta. Heavy atherosclerotic calcification of left main, LAD, and RCA. No mediastinal lymphadenopathy. No pleural effusion or pneumothorax. Calcified pleural plaque in 2 locations at left lateral pleural surface and one location in right anterior pleural surface. No destructive osseous lesion identified. Right i nternal jugular double lumen dialysis catheter with distal tip at junction between SVC and right atrium.. IMPRESSION: 1) centrilobular emphysema in upper lobes, and paraseptal emphysema at posterior lower lobe lung base s. 2) mild posterobasilar infiltrates in the bilateral lower lobes, favored to be chronic. 3) bilateral calcified pleural plaque: Evidence for prior asbestos exposure. 4) right internal jugular double lumen dialysis catheter. 5) coronary atherosclerotic disease.
--- NOTE | 2019-02-16 13:27 | PRG ---
DATE OF SERVICE: 02/16/2019 SUBJECTIVE: This 83-year-old gentleman being seen for end-stage renal disease. The patient denies any nausea, vomiting, or chest pain. OBJECTIVE: See above. The patient is awake, alert, in no acute distress. VITAL SIGNS: Pulse 93, breathing 16, blood pressure 130/66. GENERAL APPEARANCE AND MENTAL STATUS: Fair. HEAD/NECK: Normocephalic. Atraumatic. EYES: EOMI. No deformity. EARS: Clear. No ulcers. NOSE: Intact. No lesions. MOUTH: Clear. No discharge. THROAT: Clear. No exudate. LUNGS: Clear. No crackles. CARDIAC: S1, S2. No rub. ABDOMEN: Benign. Bowel sounds positive. GENITALIA/RECTUM: Babb absent. BACK/EXTREMITIES: Edema 0+. NEUROLOGICAL: Alert and motor intact. SKIN: LYMPHATICS: LABORATORY DATA: Labs are reviewed. ASSESSMENT AND PLAN: 1. Stage 6 chronic kidney disease, continue current dialysis. 2. Hypertension, stable. 3. Anemia, stable. 4. Medication based on GFR appropriate. Job ID: [id number]
--- NOTE | 2019-02-16 14:00 | CON ---
DATE OF CONSULTATION: 02/16/2019 HISTORY OF PRESENT ILLNESS: Mr. Sena is a very pleasant gentleman. I was consulted by Dr. Atkinson for an abnormal chest x-ray. After reviewing his radiograph, I recommended noncontrast chest CT. He is currently a dialysis patient. He is tentatively scheduled to have vascular access procedure done on his right upper extremity in the near future. He has end-stage renal disease, felt to be secondary I believe the hypertension. PAST MEDICAL HISTORY: Past medical history of nephrolithiasis, partial nephrectomy, and appendectomy. SOCIAL HISTORY: He is a former smoker, nondrinker, and nondrug user. FAMILY HISTORY: There is no family history of lung disease in early age. OCCUPATIONAL HISTORY: Worked in [employer] and had significant asbestos exposure when he was young man. REVIEW OF SYSTEMS: Ten point review of systems, otherwise negative. He says he is feeling fine now. MEDICATIONS: Have been reviewed. PHYSICAL EXAMINATION: GENERAL: He is a very pleasant gentleman, in no distress, conversing in complete sentences. VITAL SIGNS: He is afebrile, heart rate 93, respiratory rate is 20, oximetry is 97%, and blood pressure 143/66. HEENT: Pupils are equal. Sclerae are anicteric. Extraocular movements full. NECK: Supple. No lymphadenopathy. LUNGS: Clear. HEART: Regular rhythm. S1 and S2 are normal. Grade 1 to 2/6 systolic murmur. ABDOMEN: Soft and nontender. EXTREMITIES: Without clubbing, cyanosis, or edema. NEUROLOGIC: Nonfocal. DIAGNOSTIC DATA: Chest radiograph shows an increase in interstitial markings suggestive of pulmonary edema. There appears to be pleural plaques in the left chest. IMPRESSION: Asbestos induced pleural plaques. I have recommended noncontrast chest CT. I doubt we will find anything that is worrisome for malignancy. I suspect he will have some emphysematous changes given his heavy tobacco history in the past. The consult is appreciated at this time. This is a 50 minute consult, with greater than 50% of time spent on unit coordinating care. Job ID: [id number] MTDD
[2019-02-17 06:20] VITALS: BMI 30.3
[2019-02-17 07:10] LABS: Albumin 3.3 g/dL (3.4-4.8); Anion Gap 22 mmol/L (10-20); BUN (Urea Nitrogen) 82 mg/dL (8.4-25.7); BUN/Creatinine Ratio 12.33; Calc. Creatinine Clearance 11 mL/min (70-130); Calcium 8.7 mg/dL (7.8-10.44); Carbon Dioxide 23 mmol/L (23-31); Chloride 99 mmol/L (98-107); Estimated GFR-MDRD 8; Glucose 212 mg/dL (83-110); Phosphorus 7.3 mg/dL (2.3-4.7); Potassium 4.1 mmol/L (3.5-5.1); Sodium 140 mmol/L (136-145)
[2019-02-17 08:20] LABS: Band 3 % (5-11); Hemoglobin 13.8 g/dL (14.0-18.0); Lymphocytes 12 % (21-51); MDiff Complete? YES; Mean Corpuscular Hemoglobin 34.7 pg (27.0-31.0); Mean Platelet Volume 10.3 fL (7.4-10.4); Metamyelocyte 4 % (0-0); Monocytes 7 % (0-10); Neutrophil 74 % (42-75); Platelet Count 198 thou/uL (130-400); RBC Distribution Width 14.8 % (11.5-14.5); Red Blood Cell (RBC) Count 3.97 mill/uL (4.70-6.10); White Blood Cell (WBC) Count 19.4 thou/uL (4.8-10.8)
[2019-02-17] MEDS: guaiFENesin ER 600 MG TAB PO SCH ×2 (09:28→21:37)
[2019-02-17] MEDS: cefTRIAXone\\ROCEPHIN 1 GM in Sodium Chloride 0.9% 100 ML IVPB SCH (09:28)
[2019-02-17] MEDS: Levothyroxine Sodium 50 MCG TAB PO SCH (09:29)
[2019-02-17] MEDS: Cyanocobalamin (Vitamin B-12) 1,000 MCG TAB PO SCH (09:29)
[2019-02-17] MEDS: Atorvastatin Calcium 10 MG TAB PO SCH (09:29)
[2019-02-17] MEDS: Aspirin 81 mg Enteric Coated Tablet PO SCH (09:29)
[2019-02-17] MEDS: Famotidine 20 MG TAB PO SCH (09:29)
[2019-02-17] MEDS: Amlodipine 5 MG TAB PO SCH (09:29)
[2019-02-17] MEDS: Folic Acid 1 MG TAB PO SCH (09:29)
[2019-02-17] MEDS: Pregabalin 75 MG CAP PO SCH ×2 (09:30→21:37)
[2019-02-17] MEDS: Heparin 5,000 UNITS/ML VIAL SC SCH ×2 (09:30→21:38)
--- NOTE | 2019-02-17 09:40 | PDOC.PN ---
- Subjective Encounter Start Date: 02/17/19 Encounter Start Time: 09:00 Patient seen and examined. No new complaints. No overnight events - Objective Resuscitation Status - Order Detail: 02/15/19 10:49 Resuscitation Status Routine Resuscitation Status: FULL: Full Resuscitation MAR Reviewed: Yes Vital Signs & Weight: Vital Signs (12 hours) Temp Pulse Resp BP Pulse Ox 02/17/19 07:31 93 L 02/17/19 07:29 102 H 16 02/17/19 07:10 95 02/17/19 07:06 97.5 F L 99 18 134/60 95 02/17/19 03:50 97.8 F 87 16 124/63 93 L 02/17/19 00:54 91 14 92 L Weight Weight 217 lb 5 oz I&O: 02/16/19 02/17/19 02/18/19 06:59 06:59 06:59 Intake Total 1190 Output Total 350 Balance 840 Result Diagrams: 02/17/19 05:51 02/17/19 05:51 Additional Labs: Accuchecks 02/17/19 02/16/19 02/16/19 05:38 20:33 16:29 POC Glucose 196 H 228 H 256 H 02/16/19 12:27 POC Glucose 233 H EKG Reviewed by me: Yes Phys Exam - Physical Examination Constitutional: NAD HEENT: PERRLA, moist MMs, sclera anicteric Neck: no JVD, supple Respiratory: no wheezing, no rhonchi coarse sound Cardiovascular: RRR, no significant murmur, no rub Gastrointestinal: soft, non-tender, no distention, positive bowel sounds Musculoskeletal: no edema, pulses present Neurological: non-focal, normal sensation Lymphatic: no nodes Psychiatric: normal affect, A&O x 3 Skin: no rash, normal turgor Dx/Plan (1) Community acquired bacterial pneumonia Code(s): J15.9 - UNSPECIFIED BACTERIAL PNEUMONIA Status: Acute (2) Demand ischemia Code(s): I24.8 - OTHER FORMS OF ACUTE ISCHEMIC HEART DISEASE Status: Acute (3) Lactic acidosis Code(s): E87.2 - ACIDOSIS Status: Acute (4) Diabetes type 2, controlled Code(s): E11.9 - TYPE 2 DIABETES MELLITUS WITHOUT COMPLICATIONS Status: Chronic (5) ESRD on hemodialysis Code(s): N18.6 - END STAGE RENAL DISEASE; Z99.2 - DEPENDENCE ON RENAL DIALYSIS Status: Chronic (6) Hypertension Code(s): I10 - ESSENTIAL (PRIMARY) HYPERTENSION Status: Chronic (7) Hypothyroidism Code(s): E03.9 - HYPOTHYROIDISM, UNSPECIFIED Status: Chronic (8) Macrocytosis Code(s): D75.89 - OTHER SPECIFIED DISEASES OF BLOOD AND BLOOD-FORMING ORGANS Status: Chronic (9) Obesity (BMI 30.0-34.9) Code(s): E66.9 - OBESITY, UNSPECIFIED Status: Chronic (10) Secondary hyperparathyroidism (of renal origin) Code(s): N25.81 - SECONDARY HYPERPARATHYROIDISM OF RENAL ORIGIN Status: Chronic - Plan cont current plan of care, continue antibiotics, respiratory therapy * continue rocephin and levaquin * HD as per nephrology * repeat labs tomorrow. * add renvela for high phosphorus Review of Systems - Review of Systems ENT: negative: Ear Pain, Ear Discharge, Nose Pain, Nose Discharge, Nose Congestion, Mouth Pain, Mouth Swelling, Throat Pain, Throat Swelling, Other Respiratory: Cough, SOB with Excertion. negative: Dry, Shortness of Breath, Hemoptysis, Pleuritic Pain, Sputum, Wheezing Cardiovascular: negative: chest pain, palpitations, orthopnea, paroxysmal nocturnal dyspnea, edema, light headedness, other Gastrointestinal: negative: Nausea, Vomiting, Abdominal Pain, Diarrhea, Constipation, Melena, Hematochezia, Other Genitourinary: negative: Dysuria, Frequency, Incontinence, Hematuria, Retention , Other Musculoskeletal: negative: Neck Pain, Shoulder Pain, Arm Pain, Back Pain, Hand Pain, Leg Pain, Foot Pain, Other Skin: negative: Rash, Lesions, Santos, Bruising, Other - Medications/Allergies Allergies/Adverse Reactions: Allergies Allergy/AdvReac Type Severity Reaction Status Date / Time No Known Allergies Allergy Verified 02/15/19 19:54 Medications: Current Medications Acetaminophen (Tylenol) 650 mg PO Q4H PRN PRN Reason: Headache/Fever/Mild Pain (1-3) Hydrocodone Bitart/Acetaminophen ([place] 5/325) 1 tab PO Q4H PRN PRN Reason: Moderate Pain (4-6) Albuterol/Ipratropium (Duoneb) 3 ml NEB [id number] SANDRA Last Admin: 02/17/19 07:29 Dose: 3 ml Amlodipine Besylate (Norvasc) 5 mg PO DAILY COUNT [facility] Last Admin: 02/17/19 09:29 Dose: 5 mg Artificial Tears (Tears Naturale) 2 drop EA EYE PRN PRN PRN Reason: Dry Eyes Aspirin (Ecotrin) 81 mg PO DAILY COUNT [facility]CLUD[facility] Last Admin: 02/17/19 09:29 Dose: 81 mg Atorvastatin Calcium (Lipitor) 10 mg PO DAILY COUNT [facility] Last Admin: 02/17/19 09:29 Dose: 10 mg Bisacodyl (Dulcolax) 10 mg MT DAILYPRN PRN PRN Reason: Constipation Candesartan Cilexetil (Atacand) 16 mg PO QAM COUNT [facility] Last Admin: 02/17/19 09:29 Dose: 16 mg Cholecalciferol (Vitamin D3) 3,000 units PO DAILY COUNT [facility] Last Admin: 02/17/19 09:28 Dose: 3,000 units Cyanocobalamin (Vitamin B-12) 1,000 mcg PO DAILY COUNT [facility] Last Admin: 02/17/19 09:29 Dose: 1,000 mcg Dextrose/Water (Dextrose 50%) 25 gm SLOW IVP PRN PRN PRN Reason: Hypoglycemia Famotidine (Pepcid) 20 mg PO DAILY COUNT [facility] Last Admin: 02/17/19 09:29 Dose: 20 mg Folic Acid (Folvite) 1 mg PO DAILY COUNT [facility] Last Admin: 02/17/19 09:29 Dose: 1 mg Glucagon (Glucagon) 1 mg IM PRN PRN PRN Reason: Hypoglycemia Guaifenesin (Mucinex) 600 mg PO Q12HR COUNT [facility]CLUD[facility] Last Admin: 02/17/19 09:28 Dose: 600 mg Guaifenesin (Robitussin Sf) 200 mg PO Q4H PRN PRN Reason: Cough Heparin Sodium (Porcine) (Heparin) 5,000 units SC BID COUNT [facility] Last Admin: 02/17/19 09:30 Dose: 5,000 units Hydralazine HCl (Apresoline) 10 mg SLOW IVP Q4H PRN PRN Reason: SBP > 180 and HR < 70 Ceftriaxone Sodium 1 gm/ (Sodium Chloride) 100 mls @ 200 mls/hr IVPB Q24HR COUNT [facility] Last Admin: 02/17/19 09:28 Dose: 100 mls Dextrose/Water (D5w) 1,000 mls @ 0 mls/hr IV .Q0M PRN PRN Reason: Hypoglycemia Levofloxacin 750 mg/ Device 150 mls @ 100 mls/hr IVPB Q2DAYS COUNT [facility]CLUD[facility] Last Admin: 02/16/19 13:27 Dose: 150 mls Insulin Human Lispro (Humalog) 0 units SC .MODERATE SLIDING SC PRN PRN Reason: Moderate Correctional Scale Last Admin: 02/16/19 06:19 Dose: 4 unit Insulin Human Lispro (Humalog) 0 units SC .BEDTIME SLIDING SC PRN PRN Reason: Bedtime Correctional Scale Last Admin: 02/16/19 21:19 Dose: 2 unit Levothyroxine Sodium (Synthroid) 50 mcg PO QAM COUNT [facility] Last Admin: 02/17/19 09:29 Dose: 50 mcg Loperamide HCl (Imodium) 2 mg PO PRN PRN PRN Reason: Diarrhea/Loose Stools Loratadine (Claritin) 10 mg PO DAILYPRN PRN PRN Reason: Sinus Symptoms Metoclopramide HCl (Reglan) 5 mg IVP Q4H PRN PRN Reason: Nausea Metoprolol Succinate (Toprol Xl) 25 mg PO [facility] Last Admin: 02/16/19 20:25 Dose: 25 mg Pregabalin (Lyrica) 75 mg PO BID COUNT [facility] Last Admin: 02/17/19 09:30 Dose: 75 mg Senna/Docusate Sodium (Senokot S) 2 tab PO BID PRN PRN Reason: Constipation Sodium Chloride (Flush - Normal Saline) 10 ml IVF Q12HR COUNT [facility]CLUDES [facility] Last Admin: 02/17/19 09:31 Dose: 10 ml Sodium Chloride (Flush - Normal Saline) 10 ml IVF PRN PRN PRN Reason: Saline Flush Sodium Chloride ([place] Nasal [place] 0.65%) 0 ml EA NARE QIDPRN PRN PRN Reason: Nasal Congestion Temazepam (Restoril) 15 mg PO HSPRN PRN PRN Reason: Insomnia Throat Lozenges (Cepastat Lozenges) 1 nelda PO Q2H PRN PRN Reason: Sore Throat
[2019-02-17] MEDS: Sevelamer Carbonate 800 MG TAB PO SCH ×2 (11:22→17:01)
[2019-02-17] MEDS: HumaLOG 300 UNITS/3 ML VIAL SC PRN (11:23)
--- NOTE | 2019-02-17 12:30 | PRG ---
DATE OF SERVICE: 02/17/2019 SUBJECTIVE: An 83-year-old gentleman, being seen for end-stage renal disease. The patient denies any nausea, vomiting, or chest pain. OBJECTIVE: CONSTITUTIONAL: Awake, alert, in no acute distress. VITAL SIGNS: Afebrile, pulse 85, breathing 16, blood pressure . GENERAL APPEARANCE AND MENTAL STATUS: Fair. HEAD/NECK: Normocephalic. Atraumatic. EYES: EOMI. No deformity. EARS: Clear. No ulcers. NOSE: Intact. No lesions. MOUTH: Clear. No discharge. THROAT: Clear. No exudate. LUNGS: Clear. No crackles. CARDIAC: S1, S2. No rub. ABDOMEN: Benign. Bowel sounds positive. GENITALIA/RECTUM: Babb absent. BACK/EXTREMITIES: Edema 0+. NEUROLOGICAL: Alert and motor intact. SKIN: LYMPHATICS: LABORATORY DATA: Reviewed. ASSESSMENT AND PLAN: 1. Stage 6 chronic kidney disease, plan dialysis, lower dry weight. 2. Pulmonary edema, lower dry weight. 3. Anemia, stable. 4. Medication based on GFR, appropriate. Pulmonary consult appreciated. The patient will need close followup with Dr. Ramirez. Job ID: [id number]
--- NOTE | 2019-02-17 13:44 | PRG ---
DATE OF SERVICE: 02/17/2019 SUBJECTIVE: Mr. Sena's CT was reviewed. I discussed this with him. I see probably asbestos mediated pleural plaques. I see upper lobe bullous disease. He has some interstitial crowdings at his bases. He has coronary artery calcification. He is in no distress today and says he feels great. OBJECTIVE: VITAL SIGNS: He is afebrile. Heart rate 95, respiratory rate 18, oximetry is 95%, and blood pressure 126/60. IMPRESSION: 1. Asbestos pleural plaques. 2. Chronic obstructive pulmonary disease. 3. End-stage renal disease, on dialysis. He said he is due for dialysis tomorrow. PLAN: We will see him as needed in the future. Job ID: [id number]
[2019-02-18 06:42] LABS: Hemoglobin 13.6 g/dL (14.0-18.0); Mean Corpuscular HGB CONC 33.2 g/dL (32.0-36.0); Mean Corpuscular Hemoglobin 34.8 pg (27.0-31.0); Mean Platelet Volume 10.4 fL (7.4-10.4); Platelet Count 196 thou/uL (130-400); RBC Distribution Width 14.7 % (11.5-14.5); White Blood Cell (WBC) Count 19.3 thou/uL (4.8-10.8)
[2019-02-18 06:51] LABS: Anion Gap 24 mmol/L (10-20); BUN (Urea Nitrogen) 99 mg/dL (8.4-25.7); Calc. Creatinine Clearance 10 mL/min (70-130); Calcium 8.8 mg/dL (7.8-10.44); Carbon Dioxide 20 mmol/L (23-31); Chloride 100 mmol/L (98-107); Estimated GFR-MDRD 7; Glucose 234 mg/dL (83-110); Potassium 4.3 mmol/L (3.5-5.1); Sodium 140 mmol/L (136-145)
[2019-02-18 07:56] LABS: Band 1 % (5-11); Eosinophils 1 % (0-10); Large Platelets SLIGHT; Lymphocytes 8 % (21-51); MDiff Complete? YES; Macrocytosis SLIGHT = 6-15 cells (100X) (0-5/hpf); Metamyelocyte 4 % (0-0); Monocytes 8 % (0-10); Myelocyte 5 % (0-0); Neutrophil 72 % (42-75); Platelet Morphology Comment Appears Adequate; Polychromasia SLIGHT = 2-3 cells (100X) (0-2/hpf); Reactive Lymphocytes 1 % (0-10)
[2019-02-18] MEDS: cefTRIAXone\\ROCEPHIN 1 GM in Sodium Chloride 0.9% 100 ML IVPB SCH (09:49)
[2019-02-18] MEDS: Pregabalin 75 MG CAP PO SCH ×2 (09:50→20:19)
[2019-02-18] MEDS: Sevelamer Carbonate 800 MG TAB PO SCH ×3 (09:50→17:55)
[2019-02-18] MEDS: Cyanocobalamin (Vitamin B-12) 1,000 MCG TAB PO SCH (09:51)
[2019-02-18] MEDS: Atorvastatin Calcium 10 MG TAB PO SCH (09:51)
[2019-02-18] MEDS: guaiFENesin ER 600 MG TAB PO SCH ×2 (09:51→20:19)
[2019-02-18] MEDS: Folic Acid 1 MG TAB PO SCH (09:51)
[2019-02-18] MEDS: Amlodipine 5 MG TAB PO SCH (09:51)
[2019-02-18] MEDS: Aspirin 81 mg Enteric Coated Tablet PO SCH (09:51)
[2019-02-18] MEDS: Saccharomyces boulardii 250 MG CAP PO SCH (09:51)
[2019-02-18] MEDS: Famotidine 20 MG TAB PO SCH (09:51)
[2019-02-18] MEDS: Levothyroxine Sodium 50 MCG TAB PO SCH (10:23)
[2019-02-18] MEDS: Heparin 5,000 UNITS/ML VIAL SC SCH ×2 (10:23→20:20)
--- NOTE | 2019-02-18 11:48 | PDOC.PN ---
- Subjective Encounter Start Date: 02/18/19 Encounter Start Time: 10:10 pt today confused, his wbc count is increased, no fever, - Objective Resuscitation Status - Order Detail: 02/15/19 10:49 Resuscitation Status Routine Resuscitation Status: FULL: Full Resuscitation MAR Reviewed: Yes Vital Signs & Weight: Vital Signs (12 hours) Temp Pulse Resp BP Pulse Ox 02/18/19 09:51 101 H 02/18/19 08:02 97.4 F L 101 H 18 120/60 94 L 02/18/19 08:00 95 02/18/19 07:03 87 18 90 L 02/18/19 04:00 98.4 F 90 19 151/69 H 96 02/18/19 03:03 98.0 F 100 18 115/56 L 96 02/18/19 00:39 97 16 92 L Weight Weight 220 lb 8 oz I&O: 02/17/19 02/18/19 02/19/19 06:59 06:59 06:59 Intake Total 1190 1680 Output Total 350 0 Balance 840 1680 Result Diagrams: 02/18/19 05:59 02/18/19 05:59 Additional Labs: Accuchecks 02/18/19 02/18/19 02/17/19 10:32 06:00 20:24 POC Glucose 269 H 210 H 275 H 02/17/19 02/17/19 16:31 10:44 POC Glucose 247 H 296 H EKG Reviewed by me: Yes Phys Exam - Physical Examination Constitutional: NAD HEENT: PERRLA, moist MMs, sclera anicteric Neck: no JVD, supple Respiratory: no wheezing, no rales, no rhonchi Cardiovascular: RRR, no significant murmur, no rub Gastrointestinal: soft, non-tender, no distention, positive bowel sounds Musculoskeletal: no edema, pulses present Neurological: non-focal, normal sensation Lymphatic: no nodes Psychiatric: normal affect Skin: no rash, normal turgor Dx/Plan (1) Community acquired bacterial pneumonia Code(s): J15.9 - UNSPECIFIED BACTERIAL PNEUMONIA Status: Acute (2) Demand ischemia Code(s): I24.8 - OTHER FORMS OF ACUTE ISCHEMIC HEART DISEASE Status: Acute (3) Lactic acidosis Code(s): E87.2 - ACIDOSIS Status: Acute (4) Diabetes type 2, controlled Code(s): E11.9 - TYPE 2 DIABETES MELLITUS WITHOUT COMPLICATIONS Status: Chronic (5) ESRD on hemodialysis Code(s): N18.6 - END STAGE RENAL DISEASE; Z99.2 - DEPENDENCE ON RENAL DIALYSIS Status: Chronic (6) Hypertension Code(s): I10 - ESSENTIAL (PRIMARY) HYPERTENSION Status: Chronic (7) Hypothyroidism Code(s): E03.9 - HYPOTHYROIDISM, UNSPECIFIED Status: Chronic (8) Macrocytosis Code(s): D75.89 - OTHER SPECIFIED DISEASES OF BLOOD AND BLOOD-FORMING ORGANS Status: Chronic (9) Obesity (BMI 30.0-34.9) Code(s): E66.9 - OBESITY, UNSPECIFIED Status: Chronic (10) Secondary hyperparathyroidism (of renal origin) Code(s): N25.81 - SECONDARY HYPERPARATHYROIDISM OF RENAL ORIGIN Status: Chronic (11) Encephalopathy acute Code(s): G93.40 - ENCEPHALOPATHY, UNSPECIFIED Status: Acute Comment: due to sepsis and metabolic (12) Asbestos-induced pleural plaque Code(s): J92.0 - PLEURAL PLAQUE WITH PRESENCE OF ASBESTOS Status: Chronic (13) Emphysema of lung Code(s): J43.9 - EMPHYSEMA, UNSPECIFIED Status: Chronic Comment: centrilobular and paraseptal emphysema due to previous heavy tobacco exposure - Plan cont current plan of care, continue antibiotics * transfer to medical * mimi grier * start PT/OT and showcase trimmer for snu evaluation * continue iv levaquin * today HD * repeat labs tomorrow * medication reviewed as below * symptomatic treatment. Review of Systems - Review of Systems ENT: negative: Ear Pain, Ear Discharge, Nose Pain, Nose Discharge, Nose Congestion, Mouth Pain, Mouth Swelling, Throat Pain, Throat Swelling, Other Respiratory: negative: Cough, Dry, Shortness of Breath, Hemoptysis, SOB with Excertion, Pleuritic Pain, Sputum, Wheezing Cardiovascular: negative: chest pain, palpitations, orthopnea, paroxysmal nocturnal dyspnea, edema, light headedness, other Gastrointestinal: negative: Nausea, Vomiting, Abdominal Pain, Diarrhea, Constipation, Melena, Hematochezia, Other Genitourinary: negative: Dysuria, Frequency, Incontinence, Hematuria, Retention , Other Musculoskeletal: negative: Neck Pain, Shoulder Pain, Arm Pain, Back Pain, Hand Pain, Leg Pain, Foot Pain, Other Skin: negative: Rash, Lesions, Santos, Bruising, Other Neurological: Confusion. negative: Weakness, Numbness, Incoordination, Change in Speech, Seizures, Other - Medications/Allergies Allergies/Adverse Reactions: Allergies Allergy/AdvReac Type Severity Reaction Status Date / Time No Known Allergies Allergy Verified 02/15/19 19:54 Medications: Current Medications Acetaminophen (Tylenol) 650 mg PO Q4H PRN PRN Reason: Headache/Fever/Mild Pain (1-3) Hydrocodone Bitart/Acetaminophen ([place] 5/325) 1 tab PO Q4H PRN PRN Reason: Moderate Pain (4-6) Albuterol/Ipratropium (Duoneb) 3 ml NEB [id number] [facility] Last Admin: 02/18/19 07:03 Dose: 3 ml Amlodipine Besylate (Norvasc) 5 mg PO DAILY [facility] Last Admin: 02/18/19 09:51 Dose: 5 mg Artificial Tears (Tears Naturale) 2 drop EA EYE PRN PRN PRN Reason: Dry Eyes Aspirin (Ecotrin) 81 mg PO DAILY [facility] Last Admin: 02/18/19 09:51 Dose: 81 mg Atorvastatin Calcium (Lipitor) 10 mg PO DAILY [facility] Last Admin: 02/18/19 09:51 Dose: 10 mg Bisacodyl (Dulcolax) 10 mg MT DAILYPRN PRN PRN Reason: Constipation Candesartan Cilexetil (Atacand) 16 mg PO QAM [facility] Last Admin: 02/18/19 10:23 Dose: 16 mg Cholecalciferol (Vitamin D3) 3,000 units PO DAILY [facility] Last Admin: 02/18/19 09:51 Dose: 3,000 units Cyanocobalamin (Vitamin B-12) 1,000 mcg PO DAILY [facility] Last Admin: 02/18/19 09:51 Dose: 1,000 mcg Dextrose/Water (Dextrose 50%) 25 gm SLOW IVP PRN PRN PRN Reason: Hypoglycemia Famotidine (Pepcid) 20 mg PO DAILY [facility] Last Admin: 02/18/19 09:51 Dose: 20 mg Folic Acid (Folvite) 1 mg PO DAILY [facility] Last Admin: 02/18/19 09:51 Dose: 1 mg Glucagon (Glucagon) 1 mg IM PRN PRN PRN Reason: Hypoglycemia Guaifenesin (Mucinex) 600 mg PO Q12HR [facility] Last Admin: 02/18/19 09:51 Dose: 600 mg Guaifenesin (Robitussin Sf) 200 mg PO Q4H PRN PRN Reason: Cough Heparin Sodium (Porcine) (Heparin) 5,000 units SC BID [facility] Last Admin: 02/18/19 10:23 Dose: 5,000 units Hydralazine HCl (Apresoline) 10 mg SLOW IVP Q4H PRN PRN Reason: SBP > 180 and HR < 70 Ceftriaxone Sodium 1 gm/ (Sodium Chloride) 100 mls @ 200 mls/hr IVPB Q24HR [facility] Last Admin: 02/18/19 09:49 Dose: 100 mls Dextrose/Water (D5w) 1,000 mls @ 0 mls/hr IV .Q0M PRN PRN Reason: Hypoglycemia Levofloxacin 750 mg/ Device 150 mls @ 100 mls/hr IVPB Q2DAYS [facility] Last Admin: 02/18/19 09:52 Dose: 150 mls Insulin Human Lispro (Humalog) 0 units SC .MODERATE SLIDING SC PRN PRN Reason: Moderate Correctional Scale Last Admin: 02/17/19 11:23 Dose: 6 unit Insulin Human Lispro (Humalog) 0 units SC .BEDTIME SLIDING SC PRN PRN Reason: Bedtime Correctional Scale Last Admin: 02/16/19 21:19 Dose: 2 unit Levothyroxine Sodium (Synthroid) 50 mcg PO QAM [facility] Last Admin: 02/18/19 10:23 Dose: 50 mcg Loperamide HCl (Imodium) 2 mg PO PRN PRN PRN Reason: Diarrhea/Loose Stools Loratadine (Claritin) 10 mg PO DAILYPRN PRN PRN Reason: Sinus Symptoms Metoclopramide HCl (Reglan) 5 mg IVP Q4H PRN PRN Reason: Nausea Metoprolol Succinate (Toprol Xl) [address] [facility] Last Admin: 02/17/19 21:37 Dose: 25 mg Pregabalin (Lyrica) 75 mg PO BID [facility] Last Admin: 02/18/19 09:50 Dose: 75 mg Saccharomyces Boulardii (Florastor) 250 mg PO DAILY [facility] Last Admin: 02/18/19 09:51 Dose: 250 mg Senna/Docusate Sodium (Senokot S) 2 tab PO BID PRN PRN Reason: Constipation Sevelamer Carbonate (Renvela) 800 mg PO TID[facility] Last Admin: 02/18/19 09:50 Dose: 800 mg Sodium Chloride (Flush - Normal Saline) 10 ml IVF Q12HR [facility] Last Admin: 02/18/19 09:48 Dose: 10 ml Sodium Chloride (Flush - Normal Saline) 10 ml IVF PRN PRN PRN Reason: Saline Flush Sodium Chloride ([place] Nasal [place] 0.65%) 0 ml EA NARE QIDPRN PRN PRN Reason: Nasal Congestion Temazepam (Restoril) 15 mg PO HSPRN PRN PRN Reason: Insomnia Throat Lozenges (Cepastat Lozenges) 1 nelda PO Q2H PRN PRN Reason: Sore Throat
--- NOTE | 2019-02-18 11:56 | PRG ---
DATE OF SERVICE: 02/18/2019 SUBJECTIVE: Patient was seen and examined at bedside and overnight events noted. Patient denies any shortness of breath or chest pain or palpitation. No history of nausea or vomiting or diarrhea or fever or chills or cramps. OBJECTIVE: GENERAL: This is a well built male, in no apparent distress. VITAL SIGNS: Temperature 98.7. Heart rate 101. Respiratory rate 18. Blood pressure 120/60. HEENT: Atraumatic, normocephalic. Oral mucosa is moist NECK: Supple. CARDIOVASCULAR: S1, S2 heard. Rate and rhythm regular. RESPIRATORY: Clear to auscultation. GASTROINTESTINAL: Abdomen is soft. MUSCULOSKELETAL: No tenderness. No edema. DERMATOLOGIC: No skin rash. NEUROLOGIC: Alert and awake and oriented X3. No focal neurologic deficits. Moving all the extremities. PSYCHIATRIC: Mood and affect normal. LABORATORY DATA: Potassium 4.3, BUN 99, and creatinine is 7.7. ASSESSMENT AND PLAN: 1. End-stage renal disease. Continue on dialysis as tolerated. 2. Edema. Controlled. 3. Anemia. Monitor. 4. Hypertension. Stable. We will continue on dialysis as tolerated. Job ID: [id number]
[2019-02-18] MEDS: HumaLOG 300 UNITS/3 ML VIAL SC PRN (12:32)
[2019-02-19 04:59] LABS: Albumin 3.4 g/dL (3.4-4.8); Anion Gap 20 mmol/L (10-20); BUN (Urea Nitrogen) 47 mg/dL (8.4-25.7); BUN/Creatinine Ratio 9.34; Calc. Creatinine Clearance 15 mL/min (70-130); Carbon Dioxide 23 mmol/L (23-31); Chloride 96 mmol/L (98-107); Estimated GFR-MDRD 11; Glucose 150 mg/dL (83-110); Potassium 4.1 mmol/L (3.5-5.1); Sodium 135 mmol/L (136-145)
[2019-02-19 05:24] LABS: Band 8 % (5-11); Eosinophils 2 % (0-10); Hemoglobin 15.5 g/dL (14.0-18.0); Lymphocytes 15 % (21-51); MDiff Complete? YES; Mean Corpuscular HGB CONC 32.6 g/dL (32.0-36.0); Mean Corpuscular Hemoglobin 33.8 pg (27.0-31.0); Mean Platelet Volume 10.1 fL (7.4-10.4); Monocytes 18 % (0-10); Myelocyte 2 % (0-0); Neutrophil 55 % (42-75); Nucleated RBC 2 % (0); Platelet Count 211 thou/uL (130-400); Red Blood Cell (RBC) Count 4.57 mill/uL (4.70-6.10); White Blood Cell (WBC) Count 20.3 thou/uL (4.8-10.8)
[2019-02-19] MEDS ORDERED: Vancomycin HCl 1 GM in Premix Bag 1 BAG IVPB SCH (07:00)
[2019-02-19] MEDS ORDERED: Vancomycin HCl 500 MG in Sodium Chloride 0.9% 100 ML IVPB SCH (07:00)
[2019-02-19] MEDS ORDERED: HOLD VANCOMYCIN FOR LEVEL >20 FS SCH (07:00)
[2019-02-19] MEDS ORDERED: Vancomycin HCl 750 MG in Sodium Chloride 0.9% 250 ML 250 ML IVPB SCH (07:00)
[2019-02-19] MEDS ORDERED: Vancomycin HCl 1.25 GM in Sodium Chloride 0.9% 250 ML 250 ML IVPB SCH (07:00)
[2019-02-19] MEDS ORDERED: Vancomycin Sliding Scale 1 EACH FS SCH (07:15)
[2019-02-19] MEDS ORDERED: Vancomycin HCl 2.5 GM in Sodium Chloride 0.9% 500 ML IVPB ONE (08:00)
[2019-02-19] MEDS: cefTRIAXone\\ROCEPHIN 1 GM in Sodium Chloride 0.9% 100 ML IVPB SCH (08:24)
[2019-02-19] MEDS: Amlodipine 5 MG TAB PO SCH (08:25)
[2019-02-19] MEDS: Levothyroxine Sodium 50 MCG TAB PO SCH (08:25)
[2019-02-19] MEDS: Pregabalin 75 MG CAP PO SCH ×2 (08:25→20:59)
[2019-02-19] MEDS: Saccharomyces boulardii 250 MG CAP PO SCH (08:25)
[2019-02-19] MEDS: Cyanocobalamin (Vitamin B-12) 1,000 MCG TAB PO SCH (08:25)
[2019-02-19] MEDS: guaiFENesin ER 600 MG TAB PO SCH ×2 (08:25→20:59)
[2019-02-19] MEDS: Folic Acid 1 MG TAB PO SCH (08:25)
[2019-02-19] MEDS: Sevelamer Carbonate 800 MG TAB PO SCH ×3 (08:25→17:21)
[2019-02-19] MEDS: Atorvastatin Calcium 10 MG TAB PO SCH (08:26)
[2019-02-19] MEDS: Famotidine 20 MG TAB PO SCH (08:26)
[2019-02-19] MEDS: Aspirin 81 mg Enteric Coated Tablet PO SCH (08:26)
[2019-02-19] MEDS: Heparin 5,000 UNITS/ML VIAL SC SCH ×2 (08:26→20:58)
[2019-02-19] MEDS: HumaLOG 300 UNITS/3 ML VIAL SC PRN ×2 (12:25→17:22)
--- NOTE | 2019-02-19 14:41 | PDOC.PN ---
- Subjective Encounter Start Date: 02/19/19 Encounter Start Time: 08:30 Patient seen and examined. No new complaints. No overnight events - Objective Resuscitation Status - Order Detail: 02/15/19 10:49 Resuscitation Status Routine Resuscitation Status: FULL: Full Resuscitation MAR Reviewed: Yes Vital Signs & Weight: Vital Signs (12 hours) Temp Pulse Pulse Pulse Resp BP BP 02/19/19 14:11 117 H 20 02/19/19 10:58 98.2 F 112 H 8 L 02/19/19 09:50 118 H 117 H 109/58 L 129/60 02/19/19 08:25 80 02/19/19 08:00 02/19/19 07:08 80 20 02/19/19 07:00 97.5 F L 106 H 18 02/19/19 03:33 98.3 F 80 18 BP Pulse Ox 02/19/19 14:11 02/19/19 10:58 105/61 94 L 02/19/19 09:50 02/19/19 08:25 02/19/19 08:00 94 L 02/19/19 07:08 02/19/19 07:00 131/61 94 L 02/19/19 03:33 116/67 92 L Weight Weight 217 lb 12.8 oz I&O: 02/18/19 02/19/19 02/20/19 06:59 06:59 06:59 Intake Total 1680 960 360 Output Total 0 580 Balance 1680 380 360 Result Diagrams: 02/19/19 04:14 02/19/19 04:14 Additional Labs: Accuchecks 02/19/19 02/18/19 02/18/19 11:26 20:13 16:58 POC Glucose 229 H 171 H 108 EKG Reviewed by me: Yes Phys Exam - Physical Examination Constitutional: NAD HEENT: PERRLA, moist MMs, sclera anicteric Neck: no JVD, supple Respiratory: no wheezing, no rales, no rhonchi Cardiovascular: no significant murmur, irregular Gastrointestinal: soft, non-tender, no distention, positive bowel sounds Musculoskeletal: no edema, pulses present Neurological: non-focal, normal sensation Lymphatic: no nodes Psychiatric: normal affect, A&O x 3 Skin: no rash, normal turgor Dx/Plan (1) Community acquired bacterial pneumonia Code(s): J15.9 - UNSPECIFIED BACTERIAL PNEUMONIA Status: Acute (2) Demand ischemia Code(s): I24.8 - OTHER FORMS OF ACUTE ISCHEMIC HEART DISEASE Status: Acute (3) Lactic acidosis Code(s): E87.2 - ACIDOSIS Status: Acute (4) Diabetes type 2, controlled Code(s): E11.9 - TYPE 2 DIABETES MELLITUS WITHOUT COMPLICATIONS Status: Chronic (5) ESRD on hemodialysis Code(s): N18.6 - END STAGE RENAL DISEASE; Z99.2 - DEPENDENCE ON RENAL DIALYSIS Status: Chronic (6) Hypertension Code(s): I10 - ESSENTIAL (PRIMARY) HYPERTENSION Status: Chronic (7) Hypothyroidism Code(s): E03.9 - HYPOTHYROIDISM, UNSPECIFIED Status: Chronic (8) Macrocytosis Code(s): D75.89 - OTHER SPECIFIED DISEASES OF BLOOD AND BLOOD-FORMING ORGANS Status: Chronic (9) Obesity (BMI 30.0-34.9) Code(s): E66.9 - OBESITY, UNSPECIFIED Status: Chronic (10) Secondary hyperparathyroidism (of renal origin) Code(s): N25.81 - SECONDARY HYPERPARATHYROIDISM OF RENAL ORIGIN Status: Chronic (11) Encephalopathy acute Code(s): G93.40 - ENCEPHALOPATHY, UNSPECIFIED Status: Acute Comment: due to sepsis and metabolic (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 Review of Systems - Review of Systems ENT: negative: Ear Pain, Ear Discharge, Nose Pain, Nose Discharge, Nose Congestion, Mouth Pain, Mouth Swelling, Throat Pain, Throat Swelling, Other Respiratory: negative: Cough, Dry, Shortness of Breath, Hemoptysis, SOB with Excertion, Pleuritic Pain, Sputum, Wheezing Cardiovascular: negative: chest pain, palpitations, orthopnea, paroxysmal nocturnal dyspnea, edema, light headedness, other Gastrointestinal: negative: Nausea, Vomiting, Abdominal Pain, Diarrhea, Constipation, Melena, Hematochezia, Other Genitourinary: negative: Dysuria, Frequency, Incontinence, Hematuria, Retention , Other Musculoskeletal: negative: Neck Pain, Shoulder Pain, Arm Pain, Back Pain, Hand Pain, Leg Pain, Foot Pain, Other - Medications/Allergies Allergies/Adverse Reactions: Allergies Allergy/AdvReac Type Severity Reaction Status Date / Time No Known Allergies Allergy Verified 02/15/19 19:54 Medications: Current Medications Acetaminophen (Tylenol) 650 mg PO Q4H PRN PRN Reason: Headache/Fever/Mild Pain (1-3) Hydrocodone Bitart/Acetaminophen (Vesper 5/325) 1 tab PO Q4H PRN PRN Reason: Moderate Pain (4-6) Albuterol/Ipratropium (Duoneb) 3 ml NEB [id number] [facility] Last Admin: 02/19/19 14:11 Dose: 3 ml Amlodipine Besylate (Norvasc) 5 mg PO DAILY [facility] Last Admin: 02/19/19 08:25 Dose: 5 mg Artificial Tears (Tears Naturale) 2 drop EA EYE PRN PRN PRN Reason: Dry Eyes Aspirin (Ecotrin) 81 mg PO DAILY [facility] Last Admin: 02/19/19 08:26 Dose: 81 mg Atorvastatin Calcium (Lipitor) 10 mg PO DAILY [facility] Last Admin: 02/19/19 08:26 Dose: 10 mg Bisacodyl (Dulcolax) 10 mg MT DAILYPRN PRN PRN Reason: Constipation Candesartan Cilexetil (Atacand) 16 mg PO QAM [facility] Last Admin: 02/19/19 08:28 Dose: 16 mg Cholecalciferol (Vitamin D3) 3,000 units PO DAILY [facility] Last Admin: 02/19/19 08:24 Dose: 3,000 units Cyanocobalamin (Vitamin B-12) 1,000 mcg PO DAILY [facility] Last Admin: 02/19/19 08:25 Dose: 1,000 mcg Dextrose/Water (Dextrose 50%) 25 gm SLOW IVP PRN PRN PRN Reason: Hypoglycemia Famotidine (Pepcid) 20 mg PO DAILY [facility] Last Admin: 02/19/19 08:26 Dose: 20 mg Folic Acid (Folvite) 1 mg PO DAILY [facility] Last Admin: 02/19/19 08:25 Dose: 1 mg Glucagon (Glucagon) 1 mg IM PRN PRN PRN Reason: Hypoglycemia Guaifenesin (Mucinex) 600 mg PO Q12HR [facility] Last Admin: 02/19/19 08:25 Dose: 600 mg Guaifenesin (Robitussin Sf) 200 mg PO Q4H PRN PRN Reason: Cough Heparin Sodium (Porcine) (Heparin) 5,000 units SC BID [facility] Last Admin: 02/19/19 08:26 Dose: 5,000 units Hydralazine HCl (Apresoline) 10 mg SLOW IVP Q4H PRN PRN Reason: SBP > 180 and HR < 70 Ceftriaxone Sodium 1 gm/ (Sodium Chloride) 100 mls @ 200 mls/hr IVPB Q24HR [facility] Last Admin: 02/19/19 08:24 Dose: 100 mls Dextrose/Water (D5w) 1,000 mls @ 0 mls/hr IV .Q0M PRN PRN Reason: Hypoglycemia Levofloxacin 750 mg/ Device 150 mls @ 100 mls/hr IVPB Q2DAYS [facility] Last Admin: 02/18/19 09:52 Dose: 150 mls Vancomycin HCl 1.25 gm/ Sodium (Chloride) 250 mls @ 166.667 mls/hr IVPB WILLCALL [facility] Vancomycin HCl 1 gm/ Device 200 mls @ 200 mls/hr IVPB WILLCALL [facility] Vancomycin HCl 750 mg/ Sodium (Chloride) 250 mls @ 250 mls/hr IVPB WILLCALL [facility] Vancomycin HCl 500 mg/ Sodium (Chloride) 100 mls @ 100 mls/hr IVPB WILLCALL [facility] Insulin Human Lispro (Humalog) 0 units SC .MODERATE SLIDING SC PRN PRN Reason: Moderate Correctional Scale Last Admin: 02/19/19 12:25 Dose: 4 unit Insulin Human Lispro (Humalog) 0 units SC .BEDTIME SLIDING SC PRN PRN Reason: Bedtime Correctional Scale Last Admin: 02/16/19 21:19 Dose: 2 unit Levothyroxine Sodium (Synthroid) 50 mcg PO QAM [facility] Last Admin: 02/19/19 08:25 Dose: 50 mcg Loperamide HCl (Imodium) 2 mg PO PRN PRN PRN Reason: Diarrhea/Loose Stools Loratadine (Claritin) 10 mg PO DAILYPRN PRN PRN Reason: Sinus Symptoms Metoclopramide HCl (Reglan) 5 mg IVP Q4H PRN PRN Reason: Nausea Metoprolol Succinate (Toprol Xl) 25 mg PO HS [facility] Last Admin: 02/18/19 20:19 Dose: 25 mg Miscellaneous Medication (Pharmacy To Dose) 1 each IVPB ASDIR SANDRA Miscellaneous Medication (Vancomycin Sliding Scale) 1 each FS ASDIR SANDRA Hold Vancomycin For (Level >20) 0 each FS .AT DIALYSIS [facility] Pregabalin (Lyrica) 75 mg PO BID [facility] Last Admin: 02/19/19 08:25 Dose: 75 mg Saccharomyces Boulardii (Florastor) 250 mg PO DAILY [facility] Last Admin: 02/19/19 08:25 Dose: 250 mg Senna/Docusate Sodium (Senokot S) 2 tab PO BID PRN PRN Reason: Constipation Sevelamer Carbonate (Renvela) 800 mg PO TID-WM [facility] Last Admin: 02/19/19 12:25 Dose: 800 mg Sodium Chloride (Flush - Normal Saline) 10 ml IVF Q12HR [facility] Last Admin: 02/19/19 08:28 Dose: 10 ml Sodium Chloride (Flush - Normal Saline) 10 ml IVF PRN PRN PRN Reason: Saline Flush Sodium Chloride ([place] Nasal [place] 0.65%) 0 ml EA NARE QIDPRN PRN PRN Reason: Nasal Congestion Temazepam (Restoril) 15 mg PO HSPRN PRN PRN Reason: Insomnia Throat Lozenges (Cepastat Lozenges) 1 nelda PO Q2H PRN PRN Reason: Sore Throat
--- NOTE | 2019-02-19 14:46 | PRG ---
DATE OF SERVICE: 02/19/2019 SUBJECTIVE: Patient was seen and examined at bedside and overnight events noted. Patient denies any shortness of breath or chest pain or palpitation. No history of nausea or vomiting or diarrhea or fever or chills or cramps. OBJECTIVE: GENERAL: This is a well-built male, in no apparent distress. VITAL SIGNS: Temperature 98.2. Pulse 112. Respiratory rate 18. Blood pressure 105/61. HEENT: Atraumatic, normocephalic. Oral mucosa is moist NECK: Supple. CARDIOVASCULAR: S1, S2 heard. Rate and rhythm regular. RESPIRATORY: Clear to auscultation. GASTROINTESTINAL: Abdomen is soft. MUSCULOSKELETAL: No tenderness. No edema. DERMATOLOGIC: No skin rash. NEUROLOGIC: Alert and awake and oriented X3. No focal neurologic deficits. Moving all the extremities. PSYCHIATRIC: Mood and affect normal. LABORATORY DATA: Potassium is 4.1, BUN is 47, and creatinine is 5.03. ASSESSMENT AND PLAN: 1. End-stage renal disease. Continue on hemodialysis as tolerated. . 2. Edema, controlled. 3. Anemia. 4. Hypertension, stable. We will continue to follow and have dialysis Monday, Monday, and Monday as tolerated. Job ID: [id number]
--- NOTE | 2019-02-19 21:50 | CON ---
DATE OF CONSULTATION: PRIMARY CARE DOCTOR: Dr. Pierce. PRIMARY CARDIOLOGISTS: Selma Valera MD PRIMARY PEDIATRIC ANESTHESIOLOGIST: Oliver Marroquin MD PRIMARY PULMONOGIST: Jairon Ramirez MD REASON FOR CARDIOLOGY CONSULT: New onset atrial fibrillation. HISTORY OF PRESENT ILLNESS: Mr. Sena is an 83 years old male with significant history of hypertension, diabetes, end-stage renal disease with hemodialysis, COPD, and chronic shortness of breath secondary to asbestos exposure. According to patient's and other doctor's history, the patient presented to emergency department for worsening of shortness of breath. However, the patient told me that he lost consciousness and he passed out and he fell. Due to those reasons, the patient was transferred to emergency department by his son. The patient denies shortness of breath, chest pain, dizziness, lightheadedness, or any other cardiac complaints prior to this event on February 15, 2019. Cardiology consult was ordered due to the new onset atrial fibrillation since February 15, 2019 according to the patient's chart. He has been on heparin 5000 units twice a day. He has never seen a window glazier before or had cardiac workup. PAST MEDICAL HISTORY: 1. Hypertension. 2. Diabetes type 2. 3. Hyperlipidemia. 4. End-stage renal disease with hemodialysis. 5. Nephrolithiasis. PAST SURGICAL HISTORY: 1. Appendectomy. 2. Left nephrectomy. FAMILY HISTORY: There is no significant family history of cardiac related disease. The patient's daughter diseased due to the brain cancer. SOCIAL HISTORY: He is a . He lives with his son and his son's family. He is an ex-smoker who which he quit 30 years ago. 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 He walks with a cane, but he never fell for more than 6 months. ALLERGIES: NO KNOWN DRUG ALLERGIES. HOME MEDICATION,: 1. Metoprolol succinate 25 mg once a day. 2. Amlodipine 5 mg once a day. 3. Atorvastatin 10 mg once a day. 4. Vitamin D3 1000 units three tablets once a day. 5. Candesartan 16 mg once a day. 6. Lyrica 75 mg twice a day. 7. Lasix 40 mg once a day. 8. Aspirin 81 mg once a day. 9. Tylenol 500 mg twice a day. 10. Levothyroxine 50 mcg once a day. REVIEW OF SYSTEMS: A 12-point review of system is negative otherwise as mentioned in the HPI. PHYSICAL EXAMINATION: VITAL SIGN: Blood pressure 105/61, heart rates 90s to 110s with atrial fibrillation, temperature 98.2, O2 saturation 94% on room air, respiratory rate 20. GENERAL: The patient is alert and oriented x4, although per patient report and other doctor's medical record show different. Not in acute distress at this moment. HEENT: Normocephalic, atraumatic. Eyes, extraocular muscle movement intact. ENT and mouth, oral and nasal mucosa moist without lesion. NECK: No JVD. Supple. Normal range of motion. RESPIRATORY: Very coarse. No crackle or wheezing. CARDIOVASCULAR: Irregularly irregular. There is no S3 or S4. No significant murmur, hives, or thrill noted. EXTREMITIES: 2+ pulses in the bilateral upper and lower extremities. No edema in the lower extremities. ABDOMEN: Soft. Nontender. No mass to palpitate. Bowel sounds are present. SKIN: Warm and dry. No lesion, erythema, or rash noted. MUSCULOSKELETAL: The patient able to move all extremities. He uses a cane. He has not fallen for more than 6 months. PSYCHIATRIC: The patient's mood is appropriate. NEUROLOGIC: The patient is alert and oriented x4. Nonfocal. LABORATORY DATA: WBC 20.3, hemoglobin 15.5, hematocrit 47.4, platelet 211. Sodium 135, potassium 4.1, BUN 43, creatinine is 4.03, glucose 150. AST 35, ALT 29, troponin level is 0.125, 0.126, 0.108, 0.104, and calcium 8.8, phosphorus 7.3, magnesium is 2.0. CT scan shows centrilobular emphysema in the upper and lower and paraseptal emphysema at the posterior lower lobe lung base, and mild basilar infiltrate in the bilateral lower lobe and evidence for prior asbestos exposure, and coronary arthrosclerotic disease. ASSESSMENT AND PLAN: 1. New onset atrial fibrillation. The patient's heart rates have been in the 90 to 110s. He is on heparin 5000 unit twice a day since February 15, 2019 and he is on metoprolol succinate 25 mg once a day at night. Echocardiogram is ordered and the result is pending at this moment. TSH is going to be checked for thyroid function tomorrow. Since the patient is a dialysis patient, when patient go home, the patient should be on Coumadin or Xarelto. We would like to continue to monitor on the telemetry. 2. Community-acquired pneumonia, the patient is receiving antibiotics through IV at this moment, which is managed by primary care doctor. 3. Hypertension. The patient's blood pressure is stable with current medication. 4. Diabetes type 2, which is managed by primary care doctor. 5. Hypothyroidism. TSH is going to be checked tomorrow morning for new-onset atrial fibrillation. 6. End-stage renal disease with hemodialysis, which is managed by a bulb packer, Dr. Marroquin. 7. Absestos pleural plaque. He is stable with room air. 8. Chronic obstructive pulmonary disease, stable at this moment with current breathing treatment. 9. Coronary atherosclerotic disease by CT scan. He is on Lipitor and beta breanna, he is on Atacand 16 mg once a day. Thank you very much for Cardiology Service to participate in the care of this patient. We will follow along the patient's care team and make further recommendations as appropriate. Job ID: [id number]
--- NOTE | 2019-02-20 00:13 | CON ---
DATE OF CONSULTATION: 02/19/2019 INDICATION FOR CONSULTATION: This is an 83-year-old patient, who was admitted due to recent cough and shortness of breath. He is confused. He told me he has been here since January. He also told me that he passed out twice. Son brought him to the hospital. I do not see any indication to that. He denies any previous cardiac history. He has end-stage renal disease, on hemodialysis. Also, has hypertension, diabetes. He denies any shortness of breath or chest pain, but had been coughing apparently and was found to have what appeared to be community-acquired pneumonia. When the patient arrived here, the first EKG did show atrial fibrillation and flutter. However, he did have an EKG also on February 15, which showed a sinus rhythm. Since that time, he has converted back to atrial fibrillation, has remained in atrial fibrillation. He has not been on any significant anticoagulation for the atrial fibrillation, but has been on DVT prophylaxis in the form of heparin 5000 units b.i.d. He has not been on any medications to help convert him back to a sinus rhythm either. We were called to see this patient today, as he was being transferred to a medical floor, but was called to see the patient due to his atrial fibrillation, which has been present for the last 4 days. PAST MEDICAL HISTORY: Significant for the end-stage renal disease, on hemodialysis. He has history of hypertension. He has had an appendectomy. He has had a partial nephrectomy. He has hypothyroidism as well as diabetes. He has some history of asbestosis exposure. SOCIAL HISTORY: He smoked in the past, but stopped, he says, several years ago. He has children, who are alive and well. He has no significant alcohol use. ALLERGIES: NONE. MEDICATIONS: His medications at this time is rather extensive list, which includes. 1. Ceftriaxone. 2. Levofloxacin. 3. Vancomycin. 4. Guaifenesin. 5. Norvasc. 6. Aspirin. 7. Atorvastatin. 8. Candesartan. 9. Vitamin D. 10. Vitamin B12. 11. Famotidine. 12. Folic acid. 13. Heparin as noted above. 14. Ipratropium/albuterol. 15. Levothyroxine. 16. Metoprolol. 17. Lyrica. 18. Sevelamer. 19. P.r.n. medications. REVIEW OF SYSTEMS: Please refer the notes dictated by nurse practitioner. SOCIAL HISTORY: Please refer the notes dictated by nurse practitioner. FAMILY HISTORY: Please refer the notes dictated by nurse practitioner. PHYSICAL EXAMINATION: GENERAL: Reveals an elderly gentleman, who is confused. He thought he had been here since January. VITAL SIGNS: His blood pressure is 141/61, heart rates in the 100s to 120s with atrial fibrillation. He is afebrile, respiratory rate is 18. HEENT: Showed the head to be normocephalic and atraumatic. Carotid pulses are present without any bruits. CHEST: Actually was clear. He has decreased breath sounds, but was clear bilaterally. No rales, rhonchi, or wheezing were noted at this time. CARDIOVASCULAR: Reveals an irregular, irregular rhythm. Slight tachycardia. Heart sounds are somewhat distant. I do not hear any gross murmurs. ABDOMEN: Obese with positive bowel sounds. EXTREMITIES: Showed no clubbing, cyanosis, or edema at this time. Pedal pulses are difficult to palpate. NEUROLOGIC: The patient does have some degree of dementia, most likely and has decreased memory. LABORATORY DATA: Shows a WBC of 20.3, hemoglobin is 15.5, platelet count 212,000. BUN of 47, creatinine 5.03, blood sugar 150, potassium of 4.1. EKGs continue to show atrial fibrillation without any acute changes that would indicate ischemia. His cardiac enzymes on admission were indeterminate with a troponin I of 0.126, decreased down to 0.104, which may be due to intermittent atrial fibrillation and tachycardia. He denies any previous cardiac history. IMPRESSION: 1. Community-acquired pneumonia, for which the patient is on antibiotics. 2. Atrial fibrillation. Apparently, this has been intermittent, but now appears to be chronic. He has been in atrial fibrillation over the last 4 days. He has not been any significant anticoagulation. We will start him on at least Eliquis for anticoagulation or continue the heparin since the patient does have renal insufficiency. He has end-stage renal disease. We would not start Eliquis. We would continue the heparin. Would consider rate control with increasing the beta-blockers in this patient. We will also review the echocardiogram when it becomes available to determine which would be the best medication for the patient. 3. End-stage renal disease, for which he continues on dialysis. 4. Hypertension. This is stable at this time. 5. Diabetes, which will be dealt with by the primary care service. Further care of the patient and suggestions will be depending on discussions with the frozen food department manager once I evaluate the echocardiogram. I will make a decision about which medication will be best for his atrial fibrillation and whether or not he may be a candidate for cardioversion of atrial fibrillation once he has been orally anticoagulated and also need to evaluate his left atrial size as well as whether there might be any possible intracardiac thrombi or masses. If he has any left atrial appendage thrombus, then he would not be a candidate for cardioversion even if the left atrium does not appear to be too dilated. If he is more than 5 cm in diameter, it is highly unlikely we would be able to convert this patient for medical management. We could consider possible amiodarone, WILLIAM, and early cardioversion if the patient becomes symptomatic. At this time, would rate control him by increasing the beta-blockers if he tolerates. ADDENDUM: After review of some of the literature, it would appear that most nonvalvular atrial fibrillation patient on dialysis, they would suggest that no anticoagulation therapy is given. This is probably best for this patient to continue probably low-dose aspirin, DVT prophylaxis with a low dose of subcu heparin. We will discuss possibilities of converting the patient back to sinus rhythm. If that is the case, then we will need to do probably a WILLIAM and at least put him on a short-term warfarin therapy rather than no anticoagulation. If we should be able to consider electrical cardioversion on this patient we would then need to have medication to continue him in sinus rhythm. But at this time, I would suggest continuing just perhaps a baby aspirin and subcu heparin as he is presently being given. Job ID: [id number]
[2019-02-20 07:47] LABS: Vancomycin, Trough 26.6 ug/mL
[2019-02-20] MEDS: cefTRIAXone\\ROCEPHIN 1 GM in Sodium Chloride 0.9% 100 ML IVPB SCH (08:23)
[2019-02-20] MEDS: guaiFENesin ER 600 MG TAB PO SCH ×2 (08:24→21:46)
[2019-02-20] MEDS: Saccharomyces boulardii 250 MG CAP PO SCH (08:24)
[2019-02-20] MEDS: Aspirin 81 mg Enteric Coated Tablet PO SCH (08:24)
[2019-02-20] MEDS: Sevelamer Carbonate 800 MG TAB PO SCH ×3 (08:24→18:06)
[2019-02-20] MEDS: Cyanocobalamin (Vitamin B-12) 1,000 MCG TAB PO SCH (08:24)
[2019-02-20] MEDS: Folic Acid 1 MG TAB PO SCH (08:24)
[2019-02-20] MEDS: Levothyroxine Sodium 50 MCG TAB PO SCH (08:24)
[2019-02-20] MEDS: Atorvastatin Calcium 10 MG TAB PO SCH (08:24)
[2019-02-20] MEDS: Pregabalin 75 MG CAP PO SCH ×2 (08:25→21:47)
[2019-02-20] MEDS: Famotidine 20 MG TAB PO SCH (08:25)
[2019-02-20] MEDS: Amlodipine 5 MG TAB PO SCH (08:25)
[2019-02-20] MEDS: Heparin 5,000 UNITS/ML VIAL SC SCH ×2 (08:26→21:48)
--- NOTE | 2019-02-20 08:55 | PDOC.CTH ---
Cardiology Progress Note - Subjective Pt. seen and eval. by me. No new complaints. Eating breakfast. - Objective Vital Signs Temp Pulse Resp BP Pulse Ox 02/20/19 08:25 107 H 02/20/19 08:00 98.3 F 107 H 18 119/58 L 93 L 02/20/19 06:50 88 20 02/20/19 04:00 97.7 F 97 18 132/59 L 92 L 02/19/19 23:07 99 20 93 L Weight 218 lb 02/19/19 02/20/19 02/21/19 06:59 06:59 06:59 Intake Total 960 1760 Output Total 580 Balance 380 1760 - Physical Examination General/Neuro: other: (somewhat demented.) Neck: carotid US brisk Lungs: other: (scattered rhonchi) Heart: other: (irreg/irreg.) Abdomen: NT/ND, soft - Labs Result Diagrams: 02/19/19 04:14 02/19/19 04:14 Troponin/CKMB CK-MB (CK-2) 2.7 ng/mL (0-6.6) 02/15/19 07:46 Troponin I 0.104 ng/mL (< 0.028) H 02/15/19 12:41 - Assessment/Plan 1) Community acquired bacterial pneumonia: on antibiotics (2) CAD. s/p stents. Demand ischemia. Type II [facility]. Medical treatment. F/U with Dr. Marquez. (3) Diabetes type 2, controlled (4) ESRD on hemodialysis (5) Hypertension. stable. (6) Hypothyroidism (7) Secondary hyperparathyroidism (of renal origin) (8) Encephalopathy acute on chronic (9) Asbestos-induced pleural plaque (10) Emphysema of lung (11) Paroxysmal atrial fibrillation. Needs rate control. Would not advise OAC with his dialysis.
--- NOTE | 2019-02-20 09:21 | DIS ---
DATE OF ADMISSION: 02/15/2019 DATE OF DISCHARGE: 02/20/2019 PRIMARY CARE PHYSICIAN: Jolynn Pierce MD DISCHARGE DISPOSITION: Home with home health. PRIMARY DISCHARGE DIAGNOSES: Community-acquired bacterial pneumonia, demand ischemia due to type 2 myocardial infarction, acute encephalopathy due to sepsis and metabolic etiology, and lactic acidosis. SECONDARY DISCHARGE DIAGNOSES: Secondary hyperparathyroidism of renal origin; obesity with BMI 30; macrocytosis with anemia; hypothyroidism; hypertension; end-stage renal disease, on hemodialysis; emphysema of lung; asbestosis; diabetes type 2; chronic atrial fibrillation. PRIMARY PROCEDURE AND OPERATION: Maintenance hemodialysis. RADIOLOGICAL INVESTIGATION: Chest x-ray and chest CT. SIGNIFICANT LABORATORY DATA: Hemoglobin 15.5. Creatinine 5.03. Blood culture negative. DISCHARGE MEDICATIONS: 1. Tylenol 500 mg b.i.d. p.r.n. 2. Amlodipine with Lipitor 5/10 one tablet p.o. daily. 3. Aspirin 81 mg p.o. daily. 4. Candesartan 16 mg p.o. daily. 5. Vitamin D3 of 3000 units p.o. daily. 6. Lasix 40 mg p.o. daily. 7. Synthroid 50 mcg p.o. daily. 8. Toprol-XL 50 mg p.o. at bedtime. 9. Lyrica 75 mg p.o. b.i.d. 10. Omnicef 300 mg p.o. daily for 7 more days. 11. Vitamin B12 of 1000 mcg p.o. daily. 12. Pepcid 20 mg p.o. daily. 13. Folic acid 1 mg p.o. daily. 14. Florastor 250 mg p.o. daily. 15. Renvela 800 mg p.o. t.i.d. CONTRAINDICATION: None. CODE STATUS: Full code. INPATIENT CONVENIENCE STORE CLERK: 1. Dr. Atkinson was following for hemodialysis. 2. Dr. Ramirez was consulted for asbestosis. 3. Dr. Valera was consulted for atrial fibrillation to decide on chronic anticoagulation. DISCHARGE PLAN: Posthospital, the patient will follow up with primary care physician, Dr. Sumner, Dr. Ramirez, and Dr. Valera. HOSPITAL COURSE: This is an 83-year-old male, who was admitted by Dr. Fierro. Please see her H and P for further details. The patient was having cough, shortness of breath, and altered mental status. The patient was diagnosed with atypical pneumonia based on x-ray. The patient was treated with Rocephin, Levaquin, and vancomycin. On discharge, Omnicef was changed during this admission because the patient was having abnormal chest x-ray and that is why Pulmonary Group was consulted. Pulmonary Group recommended that this patient has asbestosis and asbestosis-related pleural plaque. This patient also was found with chronic atrial fibrillation, but his rate was controlled and that is why we consulted Cardiology to decide about chronic anticoagulation. This patient's WBC count is going up, but clinically this patient is doing much better. He needs care home home placement, and we tried to arrange with [facility], but this patient is not wanted to go to care home home or any rehab placement, and that is why we are arranging home health on discharge. I have seen and examined the patient today. The patient is at baseline. His examination has not changed from yesterday. He is doing much better. He is on room air. He had dialysis while in hospital. This patient is advised to follow up with Dr. Ramirez for followup on his chest x-ray as well as abnormal finding on the CT scan. This patient will continue to get his hemodialysis as an outpatient basis. Overall, the patient is stable. Job ID: [id number] [facility]
[2019-02-20 09:36] LABS: Hemoglobin 15.2 g/dL (14.0-18.0); Mean Corpuscular HGB CONC 32.1 g/dL (32.0-36.0); Mean Corpuscular Hemoglobin 33.6 pg (27.0-31.0); Mean Platelet Volume 9.9 fL (7.4-10.4); Platelet Count 238 thou/uL (130-400); RBC Distribution Width 15.3 % (11.5-14.5); Red Blood Cell (RBC) Count 4.53 mill/uL (4.70-6.10); White Blood Cell (WBC) Count 21.8 thou/uL (4.8-10.8)
[2019-02-20 09:38] LABS: Anion Gap 23 mmol/L (10-20); BUN (Urea Nitrogen) 69 mg/dL (8.4-25.7); Calc. Creatinine Clearance 11 mL/min (70-130); Calcium 8.6 mg/dL (7.8-10.44); Carbon Dioxide 19 mmol/L (23-31); Chloride 99 mmol/L (98-107); Estimated GFR-MDRD 8; Glucose 191 mg/dL (83-110); Potassium 4.5 mmol/L (3.5-5.1); Sodium 136 mmol/L (136-145)
[2019-02-20 10:31] LABS: Band 4 % (5-11); Eosinophils 1 % (0-10); Lymphocytes 24 % (21-51); MDiff Complete? YES; Macrocytosis SLIGHT = 6-15 cells (100X) (0-5/hpf); Metamyelocyte 3 % (0-0); Monocytes 8 % (0-10); Myelocyte 7 % (0-0); Neutrophil 52 % (42-75); Platelet Morphology Comment Appears Adequate; Reactive Lymphocytes 1 % (0-10)
--- NOTE | 2019-02-20 11:12 | PDOC.PN ---
- Subjective Encounter Start Date: 02/20/19 Encounter Start Time: 07:40 Patient seen and examined. No new complaints. No overnight events - Objective Resuscitation Status - Order Detail: 02/15/19 10:49 Resuscitation Status Routine Resuscitation Status: FULL: Full Resuscitation MAR Reviewed: Yes Vital Signs & Weight: Vital Signs (12 hours) Temp Pulse Resp BP Pulse Ox 02/20/19 08:25 107 H 02/20/19 08:00 98.3 F 107 H 18 119/58 L 93 L 02/20/19 06:50 88 20 02/20/19 04:00 97.7 F 97 18 132/59 L 92 L Weight Weight 218 lb I&O: 02/19/19 02/20/19 02/21/19 06:59 06:59 06:59 Intake Total 960 1760 Output Total 580 Balance 380 1760 Result Diagrams: 02/20/19 09:14 02/20/19 07:15 Additional Labs: Accuchecks 02/20/19 02/19/19 02/19/19 06:10 20:53 16:24 POC Glucose 184 H 169 H 191 H 02/19/19 11:26 POC Glucose 229 H EKG Reviewed by me: Yes Phys Exam - Physical Examination Constitutional: NAD HEENT: moist MMs, sclera anicteric Neck: no JVD, supple Respiratory: no wheezing, no rales, no rhonchi Cardiovascular: no significant murmur, no rub, irregular Gastrointestinal: soft, non-tender, no distention, positive bowel sounds Musculoskeletal: no edema, pulses present Neurological: non-focal, normal sensation Lymphatic: no nodes Psychiatric: normal affect, A&O x 3 Skin: no rash, normal turgor Dx/Plan (1) Community acquired bacterial pneumonia Code(s): J15.9 - UNSPECIFIED BACTERIAL PNEUMONIA Status: Acute (2) Demand ischemia Code(s): I24.8 - OTHER FORMS OF ACUTE ISCHEMIC HEART DISEASE Status: Acute (3) Lactic acidosis Code(s): E87.2 - ACIDOSIS Status: Acute (4) Diabetes type 2, controlled Code(s): E11.9 - TYPE 2 DIABETES MELLITUS WITHOUT COMPLICATIONS Status: Chronic (5) ESRD on hemodialysis Code(s): N18.6 - END STAGE RENAL DISEASE; Z99.2 - DEPENDENCE ON RENAL DIALYSIS Status: Chronic (6) Hypertension Code(s): I10 - ESSENTIAL (PRIMARY) HYPERTENSION Status: Chronic (7) Hypothyroidism Code(s): E03.9 - HYPOTHYROIDISM, UNSPECIFIED Status: Chronic (8) Macrocytosis Code(s): D75.89 - OTHER SPECIFIED DISEASES OF BLOOD AND BLOOD-FORMING ORGANS Status: Chronic (9) Obesity (BMI 30.0-34.9) Code(s): E66.9 - OBESITY, UNSPECIFIED Status: Chronic (10) Secondary hyperparathyroidism (of renal origin) Code(s): N25.81 - SECONDARY HYPERPARATHYROIDISM OF RENAL ORIGIN Status: Chronic (11) Encephalopathy acute Code(s): G93.40 - ENCEPHALOPATHY, UNSPECIFIED Status: Acute Comment: due to sepsis and metabolic (12) Asbestos-induced pleural plaque Code(s): J92.0 - PLEURAL PLAQUE WITH PRESENCE OF ASBESTOS Status: Chronic (13) Emphysema of lung Code(s): J43.9 - EMPHYSEMA, UNSPECIFIED Status: Chronic Comment: centrilobular and paraseptal emphysema due to previous heavy tobacco exposure (14) Chronic atrial fibrillation Code(s): I48.2 - CHRONIC ATRIAL FIBRILLATION Status: Chronic - Plan cont current plan of care, continue antibiotics * as per cardiology pt is not a candidate for chronic anticoagulation * toprol XL increased today * wbc count is high, but pt clinically improving, reason unclear * medication reviewed as below * symptomatic treatment * pt declined to go to snu/rehab * he has fistula procedure scheduled tomorrow * medication reviewed as below * symptomatic treatment. Review of Systems - Review of Systems ENT: negative: Ear Pain, Ear Discharge, Nose Pain, Nose Discharge, Nose Congestion, Mouth Pain, Mouth Swelling, Throat Pain, Throat Swelling, Other Respiratory: negative: Cough, Dry, Shortness of Breath, Hemoptysis, SOB with Excertion, Pleuritic Pain, Sputum, Wheezing Cardiovascular: negative: chest pain, palpitations, orthopnea, paroxysmal nocturnal dyspnea, edema, light headedness, other Gastrointestinal: negative: Nausea, Vomiting, Abdominal Pain, Diarrhea, Constipation, Melena, Hematochezia, Other Genitourinary: negative: Dysuria, Frequency, Incontinence, Hematuria, Retention , Other Musculoskeletal: negative: Neck Pain, Shoulder Pain, Arm Pain, Back Pain, Hand Pain, Leg Pain, Foot Pain, Other - Medications/Allergies Allergies/Adverse Reactions: Allergies Allergy/AdvReac Type Severity Reaction Status Date / Time No Known Allergies Allergy Verified 02/15/19 19:54 Medications: Current Medications Acetaminophen (Tylenol) 650 mg PO Q4H PRN PRN Reason: Headache/Fever/Mild Pain (1-3) Hydrocodone Bitart/Acetaminophen ([place] 5/325) 1 tab PO Q4H PRN PRN Reason: Moderate Pain (4-6) Albuterol/Ipratropium (Duoneb) 3 ml NEB [id number] [facility] Last Admin: 02/20/19 06:50 Dose: 3 ml Amlodipine Besylate (Norvasc) 5 mg PO DAILY [facility] Last Admin: 02/20/19 08:25 Dose: Not Given Artificial Tears (Tears Naturale) 2 drop EA EYE PRN PRN PRN Reason: Dry Eyes Aspirin (Ecotrin) 81 mg PO DAILY [facility] Last Admin: 02/20/19 08:24 Dose: 81 mg Atorvastatin Calcium (Lipitor) 10 mg PO DAILY [facility] Last Admin: 02/20/19 08:24 Dose: 10 mg Bisacodyl (Dulcolax) 10 mg [place] DAILYPRN PRN PRN Reason: Constipation Candesartan Cilexetil (Atacand) 16 mg PO QAM [facility] Last Admin: 02/20/19 08:24 Dose: 16 mg Cholecalciferol (Vitamin D3) 3,000 units PO DAILY [facility] Last Admin: 02/20/19 08:24 Dose: 3,000 units Cyanocobalamin (Vitamin B-12) 1,000 mcg PO DAILY [facility] Last Admin: 02/20/19 08:24 Dose: 1,000 mcg Dextrose/Water (Dextrose 50%) 25 gm SLOW IVP PRN PRN PRN Reason: Hypoglycemia Famotidine (Pepcid) 20 mg PO DAILY [facility] Last Admin: 02/20/19 08:25 Dose: 20 mg Folic Acid (Folvite) 1 mg PO DAILY [facility] Last Admin: 02/20/19 08:24 Dose: 1 mg Glucagon (Glucagon) 1 mg IM PRN PRN PRN Reason: Hypoglycemia Guaifenesin (Mucinex) 600 mg PO Q12HR [facility] Last Admin: 02/20/19 08:24 Dose: 600 mg Guaifenesin (Robitussin Sf) 200 mg PO Q4H PRN PRN Reason: Cough Heparin Sodium (Porcine) (Heparin) 5,000 units SC BID [facility] Last Admin: 02/20/19 08:26 Dose: 5,000 units Hydralazine HCl (Apresoline) 10 mg SLOW IVP Q4H PRN PRN Reason: SBP > 180 and HR < 70 Ceftriaxone Sodium 1 gm/ (Sodium Chloride) 100 mls @ 200 mls/hr IVPB Q24HR [facility] Last Admin: 02/20/19 08:23 Dose: 100 mls Dextrose/Water (D5w) 1,000 mls @ 0 mls/hr IV .Q0M PRN PRN Reason: Hypoglycemia Levofloxacin 750 mg/ Device 150 mls @ 100 mls/hr IVPB Q2DAYS [facility] Last Admin: 02/20/19 09:43 Dose: 150 mls Vancomycin HCl 1.25 gm/ Sodium (Chloride) 250 mls @ 166.667 mls/hr IVPB WILLCALL [facility] Vancomycin HCl 1 gm/ Device 200 mls @ 200 mls/hr IVPB WILLCALL [facility] Vancomycin HCl 750 mg/ Sodium (Chloride) 250 mls @ 250 mls/hr IVPB WILLCALL [facility] Vancomycin HCl 500 mg/ Sodium (Chloride) 100 mls @ 100 mls/hr IVPB WILLCALL [facility] Insulin Human Lispro (Humalog) 0 units SC .MODERATE SLIDING SC PRN PRN Reason: Moderate Correctional Scale Last Admin: 02/19/19 17:22 Dose: 2 unit Insulin Human Lispro (Humalog) 0 units SC .BEDTIME SLIDING SC PRN PRN Reason: Bedtime Correctional Scale Last Admin: 02/16/19 21:19 Dose: 2 unit Levothyroxine Sodium (Synthroid) 50 mcg PO QAM [facility] Last Admin: 02/20/19 08:24 Dose: 50 mcg Loperamide HCl (Imodium) 2 mg PO PRN PRN PRN Reason: Diarrhea/Loose Stools Loratadine (Claritin) 10 mg PO DAILYPRN PRN PRN Reason: Sinus Symptoms Metoclopramide HCl (Reglan) 5 mg IVP Q4H PRN PRN Reason: Nausea Metoprolol Succinate (Toprol Xl) 50 mg PO [facility] Miscellaneous Medication (Pharmacy To Dose) 1 each IVPB ASDIR [facility] Hold Vancomycin For (Level >20) 0 each FS .AT DIALYSIS [facility] Pregabalin (Lyrica) 75 mg PO BID [facility] Last Admin: 02/20/19 08:25 Dose: 75 mg Saccharomyces Boulardii (Florastor) 250 mg PO DAILY [facility] Last Admin: 02/20/19 08:24 Dose: 250 mg Senna/Docusate Sodium (Senokot S) 2 tab PO BID PRN PRN Reason: Constipation Sevelamer Carbonate (Renvela) 800 mg PO TID-[facility] Last Admin: 02/20/19 08:24 Dose: 800 mg Sodium Chloride (Flush - Normal Saline) 10 ml IVF Q12HR [facility] Last Admin: 02/20/19 08:25 Dose: 10 ml Sodium Chloride (Flush - Normal Saline) 10 ml IVF PRN PRN PRN Reason: Saline Flush Sodium Chloride ([place] Nasal [place] 0.65%) 0 ml EA NARE QIDPRN PRN PRN Reason: Nasal Congestion Temazepam (Restoril) 15 mg PO HSPRN PRN PRN Reason: Insomnia Throat Lozenges (Cepastat Lozenges) 1 nelda PO Q2H PRN PRN Reason: Sore Throat
[2019-02-20] MEDS: HumaLOG 300 UNITS/3 ML VIAL SC PRN (11:20)
--- NOTE | 2019-02-20 12:29 | PDOC.CTH ---
Cardiology Progress Note - Subjective the pt seen and examined. No overnight events. No cardiac complaints. - Objective Vital Signs Temp Pulse Resp BP Pulse Ox 02/20/19 08:25 107 H 02/20/19 08:00 98.3 F 107 H 18 119/58 L 93 L 02/20/19 06:50 88 20 02/20/19 04:00 97.7 F 97 18 132/59 L 92 L Weight 218 lb 02/19/19 02/20/19 02/21/19 06:59 06:59 06:59 Intake Total 960 1760 Output Total 580 Balance 380 1760 - Physical Examination General/Neuro: other: (confused) Neck: carotid US brisk Lungs: other: (corases and diminished at bases) Heart: other: (irregular) Abdomen: soft Extremities: other: (No edema) - Telemetry Telemetry Rhythm: Afib - Labs Result Diagrams: 02/20/19 09:14 02/20/19 07:15 Troponin/CKMB CK-MB (CK-2) 2.7 ng/mL (0-6.6) 02/15/19 07:46 Troponin I 0.104 ng/mL (< 0.028) H 02/15/19 12:41 - Assessment/Plan 1. New onset Afib - Metoprolol will be increased from 25mg to 50mg qd; On Heparin 5000units BID; possible WILLIAM/DCCV; waiting for Echo. 2. HTN - will stop Norvasc and increase Metoprolol 3. Community acquired bacterial pneumonia - on ABX IV 4. Hypothyroidism - 5. ESRD with HD - Plan for fistula procedure scheduled tomorrow 6. DM type 2 - 7. Asbestos-induced pleural plaque MAR reviewed Review of Systems - Review of Systems Constitutional: reports: no symptoms reported EENTM: reports: no symptoms reported Respiratory: reports: no symptoms reported Cardiac (ROS): reports: no symptoms reported ABD/GI: reports: no symptoms reported : reports: no symptoms reported Musculoskeletal: reports: no symptoms reported
--- NOTE | 2019-02-20 12:35 | PRG ---
DATE OF SERVICE: 02/20/2019 SUBJECTIVE: Patient was seen and examined at bedside and overnight events noted. Patient denies any shortness of breath or chest pain or palpitation. No history of nausea or vomiting or diarrhea or fever or chills or cramps. OBJECTIVE: GENERAL: This is an elderly male, in no apparent distress. VITAL SIGNS: Temperature 98.3. Heart rate 107. Respiratory rate 18. Blood pressure 119/58. HEENT: Atraumatic, normocephalic. Oral mucosa is moist NECK: Supple. CARDIOVASCULAR: S1, S2 heard. Rate and rhythm regular. RESPIRATORY: Clear to auscultation. GASTROINTESTINAL: Abdomen is soft. MUSCULOSKELETAL: No tenderness. No edema. DERMATOLOGIC: No skin rash. NEUROLOGIC: Alert and awake and oriented X3. No focal neurologic deficits. Moving all the extremities. PSYCHIATRIC: Mood and affect normal. LABORATORY DATA: Potassium is 4.2, BUN is 69, creatinine is 6.8. ASSESSMENT AND PLAN: 1. End-stage renal disease. Continue on hemodialysis as tolerated. 2. Edema. 3. Anemia. 4. Hypotension. Continue on dialysis as tolerated. Job ID: [id number]
[2019-02-21] MEDS: Sevelamer Carbonate 800 MG TAB PO SCH ×3 (09:21→18:05)
[2019-02-21] MEDS: Levothyroxine Sodium 50 MCG TAB PO SCH (09:21)
[2019-02-21] MEDS: Cyanocobalamin (Vitamin B-12) 1,000 MCG TAB PO SCH (09:21)
[2019-02-21] MEDS: Aspirin 81 mg Enteric Coated Tablet PO SCH (09:21)
[2019-02-21] MEDS: Folic Acid 1 MG TAB PO SCH (09:21)
[2019-02-21] MEDS: guaiFENesin ER 600 MG TAB PO SCH (09:21)
[2019-02-21] MEDS: Atorvastatin Calcium 10 MG TAB PO SCH (09:22)
[2019-02-21] MEDS: Saccharomyces boulardii 250 MG CAP PO SCH (09:22)
[2019-02-21] MEDS: Pregabalin 75 MG CAP PO SCH (09:22)
[2019-02-21] MEDS: Famotidine 20 MG TAB PO SCH (09:23)
--- NOTE | 2019-02-21 10:21 | PDOC.PN ---
- Subjective Encounter Start Date: 02/21/19 Encounter Start Time: 08:00 Patient seen and examined. No new complaints. No overnight events - Objective Resuscitation Status - Order Detail: 02/15/19 10:49 Resuscitation Status Routine Resuscitation Status: FULL: Full Resuscitation MAR Reviewed: Yes Vital Signs & Weight: Vital Signs (12 hours) Temp Pulse Resp BP Pulse Ox 02/21/19 07:55 98 F 104 H 18 103/55 L 93 L 02/21/19 07:04 94 16 90 L 02/21/19 04:00 98.3 F 95 20 115/57 L 95 02/20/19 23:59 104 H 109/65 02/20/19 23:02 92 16 Weight Weight 214 lb I&O: 02/20/19 02/21/19 02/22/19 06:59 06:59 06:59 Intake Total 1760 490 Output Total 1999 Balance 1760 -1510 Result Diagrams: 02/20/19 09:14 02/20/19 07:15 Additional Labs: Accuchecks 02/21/19 02/20/19 02/20/19 05:47 20:32 10:44 POC Glucose 138 H 198 H 228 H EKG Reviewed by me: Yes Phys Exam - Physical Examination Constitutional: NAD HEENT: PERRLA, moist MMs, sclera anicteric Neck: no JVD, supple Respiratory: no wheezing, no rales, no rhonchi Cardiovascular: no significant murmur, irregular Gastrointestinal: soft, non-tender, no distention, positive bowel sounds Musculoskeletal: no edema, pulses present Neurological: non-focal, normal sensation, moves all 4 limbs Lymphatic: no nodes Psychiatric: normal affect, A&O x 3 Skin: no rash, normal turgor Dx/Plan (1) Community acquired bacterial pneumonia Code(s): J15.9 - UNSPECIFIED BACTERIAL PNEUMONIA Status: Acute (2) Demand ischemia Code(s): I24.8 - OTHER FORMS OF ACUTE ISCHEMIC HEART DISEASE Status: Acute (3) Lactic acidosis Code(s): E87.2 - ACIDOSIS Status: Acute (4) Diabetes type 2, controlled Code(s): E11.9 - TYPE 2 DIABETES MELLITUS WITHOUT COMPLICATIONS Status: Chronic (5) ESRD on hemodialysis Code(s): N18.6 - END STAGE RENAL DISEASE; Z99.2 - DEPENDENCE ON RENAL DIALYSIS Status: Chronic (6) Hypertension Code(s): I10 - ESSENTIAL (PRIMARY) HYPERTENSION Status: Chronic (7) Hypothyroidism Code(s): E03.9 - HYPOTHYROIDISM, UNSPECIFIED Status: Chronic (8) Macrocytosis Code(s): D75.89 - OTHER SPECIFIED DISEASES OF BLOOD AND BLOOD-FORMING ORGANS Status: Chronic (9) Obesity (BMI 30.0-34.9) Code(s): E66.9 - OBESITY, UNSPECIFIED Status: Chronic (10) Secondary hyperparathyroidism (of renal origin) Code(s): N25.81 - SECONDARY HYPERPARATHYROIDISM OF RENAL ORIGIN Status: Chronic (11) Encephalopathy acute Code(s): G93.40 - ENCEPHALOPATHY, UNSPECIFIED Status: Acute Comment: due to sepsis and metabolic (12) Asbestos-induced pleural plaque Code(s): J92.0 - PLEURAL PLAQUE WITH PRESENCE OF ASBESTOS Status: Chronic (13) Emphysema of lung Code(s): J43.9 - EMPHYSEMA, UNSPECIFIED Status: Chronic Comment: centrilobular and paraseptal emphysema due to previous heavy tobacco exposure (14) Chronic atrial fibrillation Code(s): I48.2 - CHRONIC ATRIAL FIBRILLATION Status: Chronic - Plan cont current plan of care * medication reviewed as below * symptomatic treatment * see discharge luis. Review of Systems - Review of Systems ENT: negative: Ear Pain, Ear Discharge, Nose Pain, Nose Discharge, Nose Congestion, Mouth Pain, Mouth Swelling, Throat Pain, Throat Swelling, Other Respiratory: negative: Cough, Dry, Shortness of Breath, Hemoptysis, SOB with Excertion, Pleuritic Pain, Sputum, Wheezing Cardiovascular: negative: chest pain, palpitations, orthopnea, paroxysmal nocturnal dyspnea, edema, light headedness, other Gastrointestinal: negative: Nausea, Vomiting, Abdominal Pain, Diarrhea, Constipation, Melena, Hematochezia, Other Genitourinary: negative: Dysuria, Frequency, Incontinence, Hematuria, Retention , Other Musculoskeletal: negative: Neck Pain, Shoulder Pain, Arm Pain, Back Pain, Hand Pain, Leg Pain, Foot Pain, Other - Medications/Allergies Allergies/Adverse Reactions: Allergies Allergy/AdvReac Type Severity Reaction Status Date / Time No Known Allergies Allergy Verified 02/15/19 19:54 Medications: Current Medications Acetaminophen (Tylenol) 650 mg PO Q4H PRN PRN Reason: Headache/Fever/Mild Pain (1-3) Hydrocodone Bitart/Acetaminophen ([place] 5/325) 1 tab PO Q4H PRN PRN Reason: Moderate Pain (4-6) Albuterol/Ipratropium (Duoneb) 3 ml NEB [id number] [facility] Last Admin: 02/21/19 07:04 Dose: 3 ml Artificial Tears (Tears Naturale) 2 drop EA EYE PRN PRN PRN Reason: Dry Eyes Aspirin (Ecotrin) 81 mg PO DAILY [facility] Last Admin: 02/21/19 09:21 Dose: 81 mg Atorvastatin Calcium (Lipitor) 10 mg PO DAILY [facility] Last Admin: 02/21/19 09:22 Dose: 10 mg Bisacodyl (Dulcolax) 10 mg [place] DAILYPRN PRN PRN Reason: Constipation Candesartan Cilexetil (Atacand) 16 mg PO QAM [facility] Last Admin: 02/21/19 09:22 Dose: 16 mg Cholecalciferol (Vitamin D3) 3,000 units PO DAILY [facility] Last Admin: 02/21/19 09:21 Dose: 3,000 units Cyanocobalamin (Vitamin B-12) 1,000 mcg PO DAILY [facility] Last Admin: 02/21/19 09:21 Dose: 1,000 mcg Dextrose/Water (Dextrose 50%) 25 gm SLOW IVP PRN PRN PRN Reason: Hypoglycemia Famotidine (Pepcid) 20 mg PO DAILY [facility] Last Admin: 02/21/19 09:23 Dose: 20 mg Folic Acid (Folvite) 1 mg PO DAILY [facility] Last Admin: 02/21/19 09:21 Dose: 1 mg Glucagon (Glucagon) 1 mg IM PRN PRN PRN Reason: Hypoglycemia Guaifenesin (Mucinex) 600 mg PO Q12HR [facility] Last Admin: 02/21/19 09:21 Dose: 600 mg Guaifenesin (Robitussin Sf) 200 mg PO Q4H PRN PRN Reason: Cough Heparin Sodium (Porcine) (Heparin) 5,000 units SC BID [facility] Last Admin: 02/20/19 21:48 Dose: 5,000 units Hydralazine HCl (Apresoline) 10 mg SLOW IVP Q4H PRN PRN Reason: SBP > 180 and HR < 70 Ceftriaxone Sodium 1 gm/ (Sodium Chloride) 100 mls @ 200 mls/hr IVPB Q24HR [facility] Last Admin: 02/20/19 08:23 Dose: 100 mls Dextrose/Water (D5w) 1,000 mls @ 0 mls/hr IV .Q0M PRN PRN Reason: Hypoglycemia Levofloxacin 750 mg/ Device 150 mls @ 100 mls/hr IVPB Q2DAYS [facility] Last Admin: 02/20/19 09:43 Dose: 150 mls Vancomycin HCl 1.25 gm/ Sodium (Chloride) 250 mls @ 166.667 mls/hr IVPB WILLCALL [facility] Vancomycin HCl 1 gm/ Device 200 mls @ 200 mls/hr IVPB WILLCALL [facility] Vancomycin HCl 750 mg/ Sodium (Chloride) 250 mls @ 250 mls/hr IVPB WILLCALL [facility] Vancomycin HCl 500 mg/ Sodium (Chloride) 100 mls @ 100 mls/hr IVPB WILLCALL [facility] Insulin Human Lispro (Humalog) 0 units SC .MODERATE SLIDING SC PRN PRN Reason: Moderate Correctional Scale Last Admin: 02/20/19 11:20 Dose: 4 unit Insulin Human Lispro (Humalog) 0 units SC .BEDTIME SLIDING SC PRN PRN Reason: Bedtime Correctional Scale Last Admin: 02/16/19 21:19 Dose: 2 unit Levothyroxine Sodium (Synthroid) 50 mcg PO QAM [facility] Last Admin: 02/21/19 09:21 Dose: 50 mcg Loperamide HCl (Imodium) 2 mg PO PRN PRN PRN Reason: Diarrhea/Loose Stools Loratadine (Claritin) 10 mg PO DAILYPRN PRN PRN Reason: Sinus Symptoms Metoclopramide HCl (Reglan) 5 mg IVP Q4H PRN PRN Reason: Nausea Metoprolol Succinate (Toprol Xl) 50 mg PO [facility] Last Admin: 02/20/19 21:48 Dose: 50 mg Miscellaneous Medication (Pharmacy To Dose) 1 each IVPB ASDIR [facility] Hold Vancomycin For (Level >20) 0 each FS .AT DIALYSIS [facility] Pregabalin (Lyrica) 75 mg PO BID [facility] Last Admin: 02/21/19 09:22 Dose: 75 mg Saccharomyces Boulardii (Florastor) 250 mg PO DAILY [facility] Last Admin: 02/21/19 09:22 Dose: 250 mg Senna/Docusate Sodium (Senokot S) 2 tab PO BID PRN PRN Reason: Constipation Sevelamer Carbonate (Renvela) 800 mg PO TID-WM [facility] Last Admin: 02/21/19 09:21 Dose: 800 mg Sodium Chloride (Flush - Normal Saline) 10 ml IVF Q12HR [facility] Last Admin: 02/21/19 09:23 Dose: 10 ml Sodium Chloride (Flush - Normal Saline) 10 ml IVF PRN PRN PRN Reason: Saline Flush Sodium Chloride ([place] Nasal [place] 0.65%) 0 ml EA NARE QIDPRN PRN PRN Reason: Nasal Congestion Temazepam (Restoril) 15 mg PO HSPRN PRN PRN Reason: Insomnia Throat Lozenges (Cepastat Lozenges) 1 nelda PO Q2H PRN PRN Reason: Sore Throat
[2019-02-21] MEDS: Heparin 5,000 UNITS/ML VIAL SC SCH (10:38)
[2019-02-21] MEDS: cefTRIAXone\\ROCEPHIN 1 GM in Sodium Chloride 0.9% 100 ML IVPB SCH (10:50)
--- NOTE | 2019-02-21 11:56 | PRG ---
DATE OF SERVICE: 02/21/2019 SUBJECTIVE: Patient was seen and examined at bedside and overnight events noted. Patient denies any shortness of breath or chest pain or palpitation. No history of nausea or vomiting or diarrhea or fever or chills or cramps. OBJECTIVE: GENERAL: This is an elderly male, in no acute distress. VITAL SIGNS: Temperature 97. Heart rate 104. Respiratory rate 18. Blood pressure 103/55. HEENT: Atraumatic, normocephalic. Oral mucosa is moist NECK: Supple. CARDIOVASCULAR: S1, S2 heard. Rate and rhythm regular. RESPIRATORY: Clear to auscultation. GASTROINTESTINAL: Abdomen is soft. MUSCULOSKELETAL: No tenderness. No edema. DERMATOLOGIC: No skin rash. NEUROLOGIC: Alert and awake and oriented X3. No focal neurologic deficits. Moving all the extremities. PSYCHIATRIC: Mood and affect normal. LABORATORY DATA: Not done today. ASSESSMENT AND PLAN: 1. End-stage renal disease. Continue on hemodialysis as tolerated. 2. Edema, controlled. 3. Anemia. 4. Hypertension. Continue on dialysis; Monday, Monday, and Monday as tolerated. Job ID: [id number]
[2019-02-21 12:08] LABS: Anion Gap 21 mmol/L (10-20); BUN (Urea Nitrogen) 38 mg/dL (8.4-25.7); Calc. Creatinine Clearance 14 mL/min (70-130); Calcium 9.3 mg/dL (7.8-10.44); Carbon Dioxide 24 mmol/L (23-31); Chloride 98 mmol/L (98-107); Estimated GFR-MDRD 10; Glucose 169 mg/dL (83-110); Potassium 4.4 mmol/L (3.5-5.1); Sodium 139 mmol/L (136-145)
[2019-02-21 12:09] LABS: Hemoglobin 15.4 g/dL (14.0-18.0); Mean Corpuscular HGB CONC 32.1 g/dL (32.0-36.0); Mean Corpuscular Hemoglobin 33.7 pg (27.0-31.0); Mean Platelet Volume 10.4 fL (7.4-10.4); Platelet Count 249 thou/uL (130-400); Red Blood Cell (RBC) Count 4.58 mill/uL (4.70-6.10)
[2019-02-21 12:26] LABS: Band 5 % (5-11); Lymphocytes 15 % (21-51); MDiff Complete? YES; Macrocytosis SLIGHT = 6-15 cells (100X) (0-5/hpf); Metamyelocyte 5 % (0-0); Monocytes 11 % (0-10); Neutrophil 64 % (42-75); Platelet Morphology Comment Appears Adequate
--- NOTE | 2019-02-21 15:02 | SPC ---
Dialysis fistulogram right upper extremity Sonographic guided vascular access HISTORY: Renal failure. Poor maturation of right upper extremity dialysis Taylor fistula FINDINGS: After explaining the procedure and answering all questions, the right upper extremity was p repped and draped in usual sterile fashion. Sterile technique, buffered local anesthesia, sonographic guidance, and a 22-gauge needle were used to carefully access the right forearm cephalic dialysis fistula at the level of the distal radial shaft. A 5 Slovenian micropuncture dilator and sheath were placed for imaging. The right cephalic vein is very small at the level of the mid humerus . Serial imaging shows difficulty in reflux due to small nature of the vein, tightly fitting around the 5 Slovenian sheath. When reflux was achieved, there was a focal area of stenosis immediately adjacen t to the patent arterial anastomosis. The area of apparent narrowing at the level of the distal radial shaft is favored to be related to the puncture site. At the antecubital fossa, the predominant flow direct medially to the brachial vein of the upper arm. A small basilic vein is opacified and a very very small cephalic vein. Superior vena cava is patent. Fluoroscopy time 1.1 minutes. Patient tolerated the procedure well and was returned in good condition. IMPRESSION: Short segment focus of high grade narrowing immediately adjacent to the radiocephalic ab stomosis at the right wrist. Very small cephalic vein of the forearm, indicating poor maturation. At the upper arm, the basilic and cephalic veins are both small. Transcribed Date/Time: 02/21/2019 3:34 PM
[2019-02-21 16:19] VITALS: BP 113/68; TEMP 97.6
--- NOTE | 2019-02-22 11:54 | DIS ---
DATE OF ADMISSION: 02/15/2019 DATE OF DISCHARGE: 02/21/2019 ADDENDUM: Please see my discharge summary dictated on February 20, 2019. There is no change in my discharge summary. After this discharge summary, the patient stayed in the hospital 1 extra day, because the patient was planned for AV fistulogram while in hospital, which was ordered by Dr. Wallace as that procedure was planned as an outpatient basis, but as the patient was in the hospital, Dr. Wallace ordered AV fistulogram and the patient stayed in hospital anyway during that. Cardiology was planning to decide about anticoagulation and they decided about not to continue with chronic anticoagulation on this particular patient. Echocardiography result was also available and that showed atrial fibrillation with normal EF. The patient was doing very well and by the time of discharge, he was stable. He was seen and examined by me on the day of discharge. Please see my progress note from that day. The patient's white count is going up, but the patient is clinically doing much better. I advised him to follow up with primary care physician and polysomnography tech as well as road tester for maintenance dialysis. He will follow up with Dr. Valera as an outpatient basis for atrial fibrillation. Job ID: [id number]
== END 2019-02-21 18:35 | disposition home health service (06) | DRG 871 ==
LOC: ERS 07:08 → 2NO 08:52
PROVIDERS: ADMIT Internal Medicine; ATTEND Internal Medicine
PROC: 5A1D70Z Performance of Urinary Filtration, Intermittent, Less than 6 Hours Per Day (ICD-10-PCS; principal; 2019-02-15)
DX: A41.9 Sepsis, unspecified organism (principal); J15.9 Unspecified bacterial pneumonia; N18.6 End stage renal disease; G93.41 Metabolic encephalopathy; I21.A1 Myocardial infarction type 2; I12.0 Hypertensive chronic kidney disease with stage 5 chronic kidney disease or end stage renal disease; J81.1 Chronic pulmonary edema; E87.2 Acidosis; N25.81 Secondary hyperparathyroidism of renal origin; J43.2 Centrilobular emphysema; E03.9 Hypothyroidism, unspecified; F32.9 Major depressive disorder, single episode, unspecified; E11.22 Type 2 diabetes mellitus with diabetic chronic kidney disease; D75.89 Other specified diseases of blood and blood-forming organs; E66.9 Obesity, unspecified; D63.1 Anemia in chronic kidney disease; J92.0 Pleural plaque with presence of asbestos; I48.0 Paroxysmal atrial fibrillation; I25.10 Atherosclerotic heart disease of native coronary artery without angina pectoris; Z79.82 Long term (current) use of aspirin; Z79.899 Other long term (current) drug therapy; Z99.2 Dependence on renal dialysis; Z90.49 Acquired absence of other specified parts of digestive tract; Z87.891 Personal history of nicotine dependence; Z79.84 Long term (current) use of oral hypoglycemic drugs; Z68.30 Body mass index [BMI] 30.0-30.9, adult
CPT/HCPCS: 36415; 36416; 36901; 71045; 71250; 80048; 80053; 80069; 80202; 82553; 83605; 83735; 84100; 84443; 84484; 85025; 86706; 87040; 87340; 90935; 93005; 93010; 94640; 94760; 96365; 96367; 96375; G0257; J0456; J0696; J1644; J1940; J1956; J2930; J3370; J3490; J7050; J7620

== ENCOUNTER 2019-03-15 04:12 | Emergency (ER) | payer MEDICARE ==
[2019-03-15] MEDS ORDERED: Bacitracin 1 PK ONE (04:29)
[2019-03-15 05:52] LABS: Hemoglobin 12.5 g/dL (14.0-18.0); Mean Corpuscular HGB CONC 34.7 g/dL (32.0-36.0); Mean Corpuscular Hemoglobin 35.8 pg (27.0-31.0); RBC Distribution Width 15.5 % (11.5-14.5)
[2019-03-15 06:11] LABS: ALT (SGPT) 18 U/L (8-55); AST (SGOT) 17 U/L (5-34); Albumin 3.3 g/dL (3.4-4.8); Alkaline Phosphatase 101 U/L (40-150); Anion Gap 20 mmol/L (10-20); BUN (Urea Nitrogen) 57 mg/dL (8.4-25.7); Bilirubin, Total 0.3 mg/dL (0.2-1.2); Calc. Creatinine Clearance 0 mL/min (70-130); Carbon Dioxide 24 mmol/L (23-31); Chloride 99 mmol/L (98-107); Estimated GFR-MDRD 8; Globulin 3.2 g/dL (2.4-3.5); Glucose 171 mg/dL (83-110); Potassium 4.4 mmol/L (3.5-5.1); Protein, Total 6.5 g/dL (5.8-8.1); Sodium 139 mmol/L (136-145)
[2019-03-15 06:15] LABS: #Basophils 0.1 thou/uL (0.0-0.2); #Eosinphils 0.8 thou/uL (0.0-0.7); #Lymphocytes 2.8 thou/uL (1.20-3.40); #Monocytes 1.4 thou/uL (0.11-0.59); #Neutrophils 4.9 thou/uL (1.40-6.50); %Basophils 1.1 % (0.0-1.0); %Eosinophils 7.6 % (0.0-10.0); %Lymphocytes 27.9 % (21.0-51.0); %Monocytes 14.2 % (0.0-10.0); %Neutrophils 49.2 % (42.0-75.0); Anisocytosis SLIGHT = 6-15 cells (100X) (0-5/hpf); MDiff Complete? YES; Mean Platelet Volume 10.4 fL (7.4-10.4); Platelet Count 124 thou/uL (130-400); Platelet Morphology Comment Appears Decreased
--- NOTE | 2019-03-15 08:19 | HP ---
HISTORY OF PRESENT ILLNESS: Tae eSna is an 83-year-old male patient who had a right Taylor fistula in November, did not mature adequately and is scheduled next week for a more proximal right arm fistula. His hemodialysis catheter IJ has fallen out. He presents to the emergency room. Plan is to place a new hemodialysis catheter today and place a new fistula next week. The patient understands the risks and benefits, and consents. MEDICATIONS: Amlodipine. Sevelamer. Florastor. Lyrica. Metoprolol. Levothyroxine. Furosemide. Folic acid. Famotidine. Vitamin B12. Cholecalciferol. Aspirin. Acetaminophen as needed. ALLERGIES: NONE. TOBACCO: None. PAST MEDICAL HISTORY: Hypertension. Diabetes mellitus type 2. Hyperlipidemia. Chronic kidney disease. End-stage renal disease. Gout. History of nephrolithiasis. Partial left nephrectomy, noncancerous disease. Appendectomy in the past. Right Taylor fistula in November 2018. PAST SURGICAL HISTORY: Hemodialysis catheter at [facility], appendectomy and partial nephrectomy, right Taylor fistula in November that I performed and did not mature. REVIEW OF SYSTEMS: Noncontributory. PHYSICAL EXAMINATION: HEAD, EARS, EYES, NOSE AND THROAT: Unremarkable. LUNGS: Clear to auscultation. CARDIAC: Regular rate and rhythm. No murmur or gallop. ABDOMEN: Soft and nontender. Right Taylor fistula thrombosed. Nonmatured. LUNGS: Clear to auscultation. CARDIAC: Regular rate and rhythm without murmur or gallop. ABDOMEN: Soft and nontender. Right IJ catheter has fallen out. LABORATORY DATA: Hemoglobin 12 and white count 10. Basic metabolic profile normal. ASSESSMENT AND PLAN: Dislodged hemodialysis catheter. PLAN: Replacement today under IV sedation and local. Job ID: [id number]
[2019-03-15] MEDS ORDERED: ceFAZolin Sodium (SDC) 2 GM/100 ML BAG ONE (11:38)
[2019-03-15] MEDS ORDERED: Bupivacaine HCl 0.5%/Epinephrine 1:200,000/PF 30 ml Vial ONE (11:55)
[2019-03-15] MEDS ORDERED: Sodium Chloride 0.9% 10 ML ONE (11:55)
[2019-03-15] MEDS ORDERED: Lidocaine 2% PF 5 ML VIAL ONE (11:55)
[2019-03-15] MEDS ORDERED: Heparin 10,000 UNITS/1 ML VIAL ONE (11:55)
[2019-03-15] MEDS ORDERED: Meperidine HCl/PF 25 MG/ML VIAL ONE (12:20)
--- NOTE | 2019-03-15 14:14 | OP ---
DATE OF PROCEDURE: 03/15/2019 PREOPERATIVE DIAGNOSES: End-stage renal disease, dislodged right internal jugular cuffed tunneled dialysis catheter (placed in [facility] several months ago). POSTOPERATIVE DIAGNOSES: End-stage renal disease, dislodged right internal jugular cuffed tunneled dialysis catheter (placed in [facility] several months ago). Note, scheduled for right arm arteriovenous fistula next week. PROCEDURE PERFORMED: Right internal jugular cuffed tunneled hemodialysis catheter, fluoroscopy and ultrasound used. ANESTHESIA: Intravenous sedation local 0.5% Marcaine with epinephrine 30 mL mixed with 2% Xylocaine 10 mL. DESCRIPTION OF PROCEDURE: The patient was taken to the operating room. Under intravenous sedation, neck and chest were prepared with ChloraPrep and draped in routine fashion. Local anesthetic was infiltrated in the skin and subcutaneous tissue about the operative site. Ultrasound guidance was used to cannulate the right internal jugular vein, J-wire threaded, trocar catheter removed. Skin site enlarged sharply. Stab incision was made over the right chest. Using the tunneling device, the pre-curved [employer] cuffed-tunneled hemodialysis catheter tunneled between the 2 incisions and the fabric cuff placed beneath the skin exit site. Catheter secured with 2 interrupted sutures of 3-0 nylon. Small and medium sized dilators were placed over the J-wire into the internal jugular vein removed. Dilator and Peel-Away sheath placed over the J-wire into the superior vena cava, and dilator and J-wire were removed. Catheter placed with peel-away sheath. Platysma was approximated with 4-0 Monocryl, skin with subdermal 4-0 Monocryl. Fluoroscopic images revealed good catheter placement. Dermabond and sterile dressings applied. Each port aspirated blood, flushed with saline and heparinized saline solution, 1000 units of heparin per mL indicating the volume of the port. Job ID: [id number]
--- NOTE | 2019-03-15 16:07 | RAD ---
CHEST ONE VIEW: Comparison: 02-15-19 History: Status post renal dialysis catheter placement. FINDINGS: Re-demonstration of a right sided HemoSplit dialysis catheter. Tips appear to project over the superi or vena cava. Atherosclerosis of the aorta. Normal cardiac silhouette. Chronic change in the lung par enchyma. There is no pneumothorax. Stable emphysematous changes in the left and right upper lobe. Pleural based calcification with respect to the right hemithorax. IMPRESSION: 1. Right sided HemoSplit dialysis catheter placement without evidence of pneumothorax. 2. Emphysematous changes/chronic changes. 3. Atherosclerosis. POS: [facility]
== END 2019-03-15 15:35 | disposition home or self-care (01) ==
LOC: ERS 04:12
DX: T82.898A Other specified complication of vascular prosthetic devices, implants and grafts, initial encounter (principal); E11.9 Type 2 diabetes mellitus without complications; E03.9 Hypothyroidism, unspecified; I10 Essential (primary) hypertension; Z79.82 Long term (current) use of aspirin; Z79.899 Other long term (current) drug therapy
CPT/HCPCS: 71045; 80053; 83880; 85025; 99285; C1752; C1769; 36415; J0670; J0690; J1644; J2001; J2175

== ENCOUNTER 2019-05-02 11:06 | Outpatient (CLI) | payer MEDICARE ==
--- NOTE | 2019-05-02 12:06 | RAD ---
TWO VIEW CHEST: INDICATION: Central line placement. Dialysis catheter placement. COMPARISON: 03/15/2019. FINDINGS: Dual-lumen large caliber central line has been placed on the right. The line overlies the SVC. Lungs appear clear of acute process. Pleural opacities overlying the lateral left chest. Cardiomedi astinum unremarkable with aortic calcification again noted. Mild hyperexpansion. IMPRESSION: Central line appears adequately positioned. POS: [facility]
== END 2019-05-02 11:07 | disposition home or self-care (01) ==
LOC: RAD 11:06
PROVIDERS: ATTEND Internal Medicine Critical Care Medicine
DX: R06.00 Dyspnea, unspecified (principal)
CPT/HCPCS: 71046